=== PATIENT | female | born 1955 | race Caucasian/White ===

== ENCOUNTER → 2021-07-03 12:41 | Outpatient (CLI) | payer MEDICARE, SELFPAY ==
--- NOTE | ~2021-07-03 | US_ITS ---
EXAMINATION: US soft tissue head and neck DATE: 07/03/2021 13:06 INDICATION: Right neck mass. TECHNIQUE: Multiple grayscale and Doppler ultrasound images of the neck were obtained. COMPARISON: None FINDINGS: There is a 5.2 x 2.5 x 5.2 cm mass in the right internal jugular chain. IMPRESSION: 1. 5.2 x 2.5 x 5.2 cm mass in the right internal jugular chain, likely an enlarged jacqueline mass suspici ous for metastatic disease or lymphoma. Ultrasound-guided core needle biopsy is recommended. Neck CT with contrast is recommended. I discussed this finding and the recommendation for biopsy with the pat ient at the time of the exam. Reviewed, dictated and finalized at location B. IMPRESSION: 1. 5.2 x 2.5 x 5.2 cm mass in the right internal jugular chain, likely an enlar ged jacqueline mass suspicious for metastatic disease or lymphoma. Ultrasound-guided core needle biopsy is recommended. Neck CT with contrast is recommended. I dis cussed this finding and the recommendation for biopsy with the patient at the t rachna of the exam.
== END ==
PROVIDERS: PCP Physician Assistant; Visit Provider Physician Assistant
DX: R22.1 Localized swelling, mass and lump, neck (principal)
CPT/HCPCS: 76536

== ENCOUNTER → 2021-07-12 08:26 | Outpatient (CLI) | payer MEDICARE, SELFPAY ==
--- NOTE | ~2021-07-12 | CT_ITS ---
EXAMINATION: CT soft tissue neck chest w DATE: 07/12/2021 09:13 INDICATION: Neck mass. TECHNIQUE: Computed tomography (CT) of the neck and chest was performed with 75 mL Omnipaque 300 intr avenous contrast. Automated exposure control and iterative reconstruction technique were employed. Th e dose-length product was 794.08 mGy-cm. COMPARISON: Ultrasound 07/03/2021 FINDINGS: CT NECK: There is a mass involving the right mid and inferior internal jugular chains measuring 4.6 x 3.7 x 6.4 cm. There is mass effect on the right internal jugular vein, which remains patent. The pha rynx and larynx are normal. The thyroid is normal. There is plaque in the proximal internal carotid a rteries with less than 50% stenosis relative to normal distal artery lumen diameters. There is severe spondylosis at C5-C6 and mild spondylosis at other levels. There is mild mucosal thickening in the f rontal sinuses. There is a trace left mastoid effusion. CT CHEST: There is mild emphysema. There is mild dependent atelectasis bilaterally. There is a 5 mm n odule at minor fissure. There is a 6 mm nodule at left major fissure. There is a 4 mm nodule at left major fissure. There is a 5 mm nodule in right upper lobe. No pleural effusion. There is left atrial enlargement of the heart. There are coronary artery calcifications. No pericardial effusion. There is diffuse hepatic steatosis. There are changes of cholecystectomy. There is mild thoracic spondylosis. IMPRESSION: 1. 4.6 x 3.7 x 6.4 cm mass in the right mid and lower internal jugular lymph node chains. The differe ntial diagnosis includes jacqueline metastatic disease, lymphoma, and sarcoma. Ultrasound-guided core need le biopsy is recommended. 2. Mild emphysema. 3. Small lung nodules, likely benign. Reviewed, dictated and finalized at location A. IMPRESSION: 1. 4.6 x 3.7 x 6.4 cm mass in the right mid and lower internal jugular lymph no de chains. The differential diagnosis includes jacqueline metastatic disease, lympho ma, and sarcoma. Ultrasound-guided core needle biopsy is recommended. 2. Mild emphysema. 3. Small lung nodules, likely benign.
[2021-07-12 08:51] LABS: Estimated Glomerular Filt Rate 55
== END ==
PROVIDERS: PCP Physician Assistant; Visit Provider Physician Assistant
DX: R91.8 Other nonspecific abnormal finding of lung field (principal); J43.9 Emphysema, unspecified
CPT/HCPCS: 70491; 71260; Q9967

== ENCOUNTER 2021-10-03 13:09 | Inpatient (IN) | payer MEDICARE, SELFPAY ==
[2021-10-03] VITALS (7 sets, daily range): BP systolic 88–152; BP diastolic 58–88; PULSE 58–73; RESP 16–20; TEMP 36.3–37.1; O2SAT 88–96; BMI 24.3
--- NOTE | ~2021-10-03 | CT_ITS ---
EXAMINATION: CT abdomen pelvis w con DATE: 10/03/2021 15:44 INDICATION: abd pain TECHNIQUE: Computed tomography (CT) of the abdomen and pelvis was performed with 100 mL Omnipaque-350 intravenous contrast. Automated exposure control and iterative reconstruction technique were employe d. The dose-length product was 851.94 mGy-cm. COMPARISON: None. FINDINGS: Lower thorax: Homogenously enhancing right basilar consolidation with volume loss, likely atelectasis . Small hiatal hernia. Liver: Mild enlargement. Diffuse fatty infiltration. Biliary/Gallbladder: Gallbladder is absent. No bile duct dilation. Pancreas: No mass or duct dilation. Spleen: Normal. Adrenals:No mass. Kidneys: Simple lower pole cysts on the left. Right hypodensities, too small to characterize. No calc ification or hydronephrosis. GI tract: Antral wall edema No small or large bowel dilation. Not visualized. Diverticulosis without diverticulitis. Mesentery/Peritoneum: No ascites, mass, or free air. Retroperitoneum: No mass. Pelvis: Pelvic organs are within normal limits. Soft Tissues: Soft tissues and body wall unremarkable. Bones: No acute osseous finding. IMPRESSION: Right basal atelectasis. Mild hepatomegaly. Hepatic steatosis. Antral gastritis. Reviewed, dictated and finalized at location K. IMPRESSION: Right basal atelectasis. Mild hepatomegaly. Hepatic steatosis. Antral gastritis .
--- NOTE | ~2021-10-03 | XR_ITS ---
EXAMINATION: XR chest 1V portable DATE: 10/03/2021 14:30 INDICATION: Cough, nausea and vomiting. TECHNIQUE: frontal view of the chest was obtained. COMPARISON: Chest radiograph dated 05/06/[address] dated 07/12/2021 FINDINGS: New elevation the right hemidiaphragm with right basilar opacities most likely atelectasis. No pulmon humaira edema, pleural effusion or pneumothorax. The cardiomediastinal silhouette is normal. Surgical cli ps at the right neck which may relate to prior right thyroidectomy. IMPRESSION: 1. Opacities at the right lung base most likely atelectasis given the elevation right hemidiaphragm a lthough differential would include pneumonia. Reviewed, dictated and finalized at location A. IMPRESSION: 1. Opacities at the right lung base most likely atelectasis given the elevation right hemidiaphragm although differential would include pneumonia.
--- NOTE | ~2021-10-03 | CT_ITS ---
EXAMINATION: CT brain wo con DATE: 10/03/2021 14:32 INDICATION: Dizziness TECHNIQUE: Computed tomography (CT) of the head was performed without intravenous contrast. Sagittal and coronal reconstructions were performed. The mA was adjusted according to patient size. Iterative reconstruction technique was employed. The dose-length product was 681.00 mGy-cm. COMPARISON: None FINDINGS: No acute intracranial hemorrhage, acute infarction or abnormal extra axial fluid collection. Ventricl es are normal and symmetric. No mass/mass effect. The orbits, paranasal sinuses and mastoid air cells are normal. IMPRESSION: 1. No acute intracranial process. Reviewed, dictated and finalized at location A.
--- NOTE | 2021-10-03 13:20 | ECG_ITS ---
Measurements Intervals Perkins Rate: 65 P: 34 WA: 186 QRS: -14 QRSD: 100 T: 67 QT: 360 QTc: 377 Interpretive Statements SINUS RHYTHM BASELINE ARTIFACT LOW QRS VOLTAGE IN PRECORDIAL LEADS ANTEROSEPTAL MYOCARDIAL INFARCTION , OF INDETERMINATE AGE ABNORMAL ECG NO PREVIOUS ECG AVAILABLE FOR COMPARISON Electronically Signed On 10-03-2021 16:07:53 CDT by Dell Sharma M.D.
[2021-10-03 13:37] LABS: Basophils Percent Auto 0.2 % (0.2-1.2); Eosinophils Percent Auto 0.1 % (0-4.4); Hemoglobin 13.6 g/dL (12.0-15.0); Immature Granulocyte Absolute 0.11 K/mm3 (0.00-0.031); Immature Granulocyte Percent A 0.6 % (0-0.5); Immature Platelet Fraction Pct 12.7 % (0.9-11.2); Lymphocytes Absolute Auto 1.03 K/mm3 (0.9-3.2); Lymphocytes Percent Auto 5.7 % (18.3-44.2); Mean Corpuscular HGB Conc 36.8 g/dl (32-36); Mean Corpuscular Hemoglobin 29.4 pg (26-34); Mean Corpuscular Volume 79.9 fl (80-100); Mean Platelet Volume 11.6 fl (7.4-10.4); Monocytes Absolute Auto 0.5 K/mm3 (0.1-0.6); Monocytes Percent Auto 2.9 % (2.6-8.5); Neutrophils Absolute Auto 16.4 K/mm3 (1.3-6.7); Neutrophils Percent Auto 90.5 % (45.5-73.1); Platelet Count Result 402 k/mm3 (150-375); Red Blood Count 4.63 M/mm3 (4.2-5.4); Red Cell Distribution Width 13.8 % (11.5-14.5); White Blood Count 18.1 K/mm3 (4.5-10.0)
[2021-10-03 13:56] LABS: Alanine Aminotransferase 90 U/L (6-35); Albumin Level 5.3 g/dL (3.5-5.1); Alkaline Phosphatase 92 U/L (38-126); Anion Gap 17 mmol/L (8-16); Aspartate Amino Transferase 470 U/L (14-36); Blood Urea Nitrogen 13 mg/dL (7-17); Calcium 8.5 mg/dL (8.4-10.2); Carbon Dioxide 22 mmol/L (22-30); Chloride 67 mmol/L (98-107); Estimated CRCL calculation 49 ml/min; Estimated Glomerular Filt Rate > 60; Glucose 157 mg/dL (65-110); Potassium 3.4 mmol/L (3.4-5.0); Sodium 106 mmol/L (137-145)
[2021-10-03 15:27] LABS: SARS-CoV-2 RNA PCR Negative
--- NOTE | 2021-10-03 16:15 | ED.GENADULT ---
HPI - General Adult General Chief complaint: Dizziness Stated complaint: weakness and dizziness - low sodium Time Seen by Provider: 10/03/21 14:02 Source: RN notes reviewed History of Present Illness HPI narrative: Patient presents emergency department from home for low sodium. Patient states that for the past 2 days she has been having some dizziness as well as some nausea she did have 1 episode of emesis earlier today. The patient has a history of thyroid cancer with a thyroidectomy performed by Dr. Roberto Carlos Lanza at [facility] 6 weeks ago on 08/16/2021. She was due to have a radiation iodine ablation done today by radiation oncology and had gone to the office of Dr. Omer Magallanes today and told him of her symptoms had lab work drawn showing a sodium of 105. I did discuss with Dr. Magallanes who called on the phone and states that they were keeping the patient hypothyroid in order to come pleat her radiation iodine ablation patient denies any fevers or chills chest pain shortness of breath or any other symptom Related Data Allergies Allergy/AdvReac Type Severity Reaction Status Date / Time paroxetine Allergy Unknown Numbness Verified 10/03/21 13:11 Sulfa (Sulfonamide Allergy Unknown Throat Verified 10/03/21 13:11 Antibiotics) closes up Review of Systems Review of Systems: Gen.: Denies fevers or chills Eyes: Denies eye pain or visual change ENT: Denies congestion Respiratory: Denies shortness of breath or cough CV: Denies chest pain or palpitations GI: Denies abdominal pain reports nausea vomiting denies burning, urgency, frequency or hematuria Musculoskeletal: Denies back pain or muscle pain Neuro: De reports dizziness Skin: Denies rash Except as documented, all other systems reviewed and negative [facility] Past Medical History Medical History (Updated 10/03/21 @ 16:19 by Brandon Oconnell DO) Thyroid cancer Social History Social History Smoking status: Current every day smoker Exam Narrative: APPEARANCE: No acute distress, nontoxic, resting in bed HEENT: Normocephalic, atraumatic, OMM, EYES: PERRL, EOMI RESPIRATORY: No respiratory distress, clear to auscultation bilaterally with no rhonchi wheezing or rales CARDIOVASCULAR: RRR s murmur ABDOMINAL: Soft, nontender, nondistended MUSCULOSKELETAL: Moves all extremities. No clubbing, cyanosis or edema. NEURO: A and O ?3, following commands, speech normal, no facial droop,muscle strength 5 out of 5 bilateral upper and lower extremities SKIN:: Warm, dry. Normal Color PSYCHIATRIC: Normal affect/mood Course Course Emergency Course: Discussed with Dr. Green presentation work-up at this time request the patient received 3% normal saline at 75 mL an hour for 3 hours. Discussed with ELIN Tatum for Dr Fonseca presentation work-up agrees with admission Discussed with patient and family results of workup and diagnosis. Discussed need for admission. Patient and family understand and agree to current treatment plan Vital Signs Vital signs: Vital Signs Temperature 98.7 F 10/03/21 13:12 Pulse Rate 65 10/03/21 13:12 Respiratory Rate 16 10/03/21 13:12 Blood Pressure 152/88 H 10/03/21 13:12 Pulse Oximetry 94 10/03/21 13:12 Oxygen Delivery Room Air 10/03/21 13:12 Temperature 98.7 F 10/03/21 13:12 Pulse Rate 65 10/03/21 13:12 Respiratory Rate 16 10/03/21 13:12 Blood Pressure 152/88 H 10/03/21 13:12 Pulse Oximetry 94 10/03/21 13:12 Oxygen Delivery Room Air 10/03/21 13:12 Medical Decision Making Vital Signs Vital Signs: Vital Signs Temperature 98.7 F 10/03/21 13:12 Pulse Rate 65 10/03/21 13:12 Respiratory Rate 16 10/03/21 13:12 Blood Pressure 152/88 H 10/03/21 13:12 Pulse Oximetry 94 10/03/21 13:12 Oxygen Delivery Room Air 10/03/21 13:12 Temperature 98.7 F 10/03/21 13:12 Pulse Rate 65 10/03/21 13:12 Respiratory Rate 16 10/03/21 13:12 Blood Pressure 1
[2021-10-03 16:24] LABS: Lactic Acid Reflex 2.7 mmol/L (0.7-2.0); Lipase 277 U/L (23-300); Magnesium 1.4 mg/dL (1.6-2.3)
[2021-10-03 16:46] LABS: Appearance Urine Clear (Clear); Bilirubin Urine Negative (Negative); Blood Urine 2+ (Negative); Color Urine Yellow (Yellow); Glucose Urine UA Negative (Negative); Ketones Urine Negative (Negative); Leukocyte Esterase Ur Negative LEU/UL (Negative); Nitrate Urine Negative (Negative); Protein Urine 3+ mg/dL (Negative); Specific Grav Ur >= 1.030 (1.001-1.035); Urobilinogen Urine 0.2 mg/dL (<2.0); pH Urine 5.5 (5.0-9.0)
[2021-10-03] MEDS: SODIUM CHLORIDE 3% 225 ML 75 ML IV CONT (16:47)
[2021-10-03 16:55] LABS: Bacteria Urine Trace /hpf; Mucus Urine Rare /lpf; RBC Urine 0-2 /hpf (0-2); Squamous Epithelial Cell Urine Rare /hpf (Few); WBC Urine 0-3 /hpf
[2021-10-03 16:58] LABS: Sodium Urine Random 24 meq/L
[2021-10-03 16:59] LABS: Add Urine Microscopic? YES
--- NOTE | 2021-10-03 17:21 | PM.IMHP ---
H&P: HPI History of Present Illness Date/Time: 10/03/21 17:21 Chief Complaint: Electrolyte imbalance Narrative: This is a 66-year-old female patient who has a history having thyroid cancer. She was sent to the emergency room due to her low sodium. Over the last 2 days she is been slightly confused and had some dizziness. She has had some nausea and vomiting. The patient recently had a thyroidectomy by Dr. Roberto Carlos Lanza at [facility] 6 weeks ago on 08/16/2021. The patient was supposed to have radiation iodine ablation done today. The patient told Dr. Omre her today about her symptoms and he wanted some labs drawn. Her sodium was found to be 105. ER physician spoke with Dr. Thomas who informed the ER physician that they are wanting to keep her hypothyroid in order to do radiation iodine ablation on the patient. Urology has been consulted and 3% normal saline was hung. Patient is having difficulty answering questions at this time. The patient is being admitted to observation status on the date of service of 10/03/2021. Review of Systems Review of Systems: All systems reviewed & are unremarkable except as noted in HPI and below Constitutional: Constitutional: Reports as per HPI and Reports no additional constitutional complaints Eyes: Eyes: Reports as per HPI and Reports no additional eye complaints ENT: Reports system reviewed and no additional complaints, except as documented and Reports Normal hearing present Cardiovascular: Cardiovascular: Reports no additional cardiovascular complaints Respiratory: Respiratory: Reports no additional respiratory complaints and Reports no additional respiratory complaints Gastrointestinal: Gastrointestinal: Reports as per HPI and Reports no additional gastrointestinal complaints Musculoskeletal: Musculoskeletal: Reports no additional musculoskeletal complaints Integumentary/Breasts: Skin/Breast: Reports system reviewed and no additional complaints, except as docu and Reports as per HPI Neurologic: Reports system reviewed and no additional complaints, except as documented, Reports as per HPI and Reports Normal hearing present Psychiatric: Psychiatric: Reports no additional psychiatric complaints and Reports as per HPI Endocrine: Endocrine: Reports no additional endocrine complaints Hematologic/Lymphatic: Hematologic/Lymphatic: Reports no additional hematologic/lymphatic complaints Allergic/Immunologic: Allergic/Immunologic: Reports no additional allergic/immunologic complaints [facility] Past Medical History Medical History (Updated 10/03/21 @ 19:38 by Deepti Gilbert NP) Anxiety state, unspecified Depressive disorder, not elsewhere classified DM2 (diabetes mellitus, type 2) Thyroid cancer Surgical History Surgical History (Updated 10/03/21 @ 19:23 by Deepti Gilbert NP) H/O thyroidectomy History of tonsillectomy Hx of cholecystectomy Family History Family History Father Cerebrovascular accident Diabetes mellitus Social History Social History (Updated 10/03/21 @ 19:25 by Deepti Gilbert NP) Social History: The patient continues to smoke. She is . She is self-employed. Her son and daughter were at the bedside with her. She lives alone Code status full code Smoking packs per day: 1 Smoking cigarettes per day: 20.0 Years smoked: 48 Smoking pack-years: 48.00 Smoking status: Current every day smoker Tobacco type: e-cigarettes/vaping Additional smoking assessment comments: stopped cigarettes 2013 started 3mg nicotine vape, uses 2 cartridges a day Alcohol intake: never Substance use: never Spiritual care concerns: No Meds Home Medications and Allergies Allergies Allergy/AdvReac Type Severity Reaction Status Date / Time paroxetine Allergy Unknown Numbness Verified 10/03/21 13:11 Sulfa (Sulfonamide Allergy Unknown Throat Verified 10/03/21 13:11 Antibiotics) closes up Vit
--- NOTE | 2021-10-03 17:55 | ADMGEN ---
This patient, Viviana Ruano, was admitted to IMU Room 202-01. Patient/family oriented to hospital policies and general routines including ID bracelet, bed and alarms, visiting hours, pain management, procedures, bathroom and other care routines, personal items, smoking policy, room service/diet, and visiting hours. Information on how to activate the Rapid Response Team has been discussed. Patient/Family are encouraged to report perceived risks to care and to ask questions if they do not understand what they are told or what they should do.
[2021-10-03 18:12] LABS: Glucose Point of Care 139 mg/dl (65-105)
[2021-10-03 18:13] LABS: Creatine Kinase 15941 U/L (30-135)
[2021-10-03] MEDS: MAGNESIUM SULF 2 GM/WATER 50ML 2 GM/50 ML BAG IVPB (18:17)
--- NOTE | 2021-10-03 18:23 | PM.CNNEP ---
Assessment and Plan Additional Plan 1. Viviana has hyponatremia. This is severe. She does have some symptoms with the dizziness and difficulty with recall. She does not drink alcohol to excess. CT brain was unremarkable. Chest x-ray shows some by basilar atelectasis, not enough to cause sodium to be low. Abdominal CT shows mild hepatomegaly with hepatic steatosis and antral gastritis. Will check a TSH, cortisol, SPEP, From the history it sounds like she has been drinking a moderate amount of fluid but not taking any salt in and also not eating much the last couple or 3 days because of the nausea. She has hypothyroidism because she has been holding her thyroid supplement and so this decreases the body's ability to get rid of free water. In addition the nausea can also stimulate ADH. So this is a combination of inappropriate ADH and water drinking out of balance with the salt intake. At this point since she is symptomatic we will give her a small amount of 3% saline to try to bring the sodium level up by about 3. In the meantime we will start a fluid restriction of 1000cc per day. Will check a sodium level right after the 3% saline infusion is over. Long discussion with the patient, her son and [id number]. I answered questions. 2. The patient has elevated liver enzymes. The CT showed hepatic steatosis and hepatomegaly. 3. The patient has thyroid carcinoma. She is going to get MEDEROS. 4. The patient has hypertension. Her blood pressure is doing pretty well. 5. She has hyperlipidemia. She is on meds for this. History of Present Illness Reason for Consult Consult date: 10/03/21 Chief Complaint Chief complaint: weakness and dizziness - low sodium History of Present Illness Narrative: Viviana is a very pleasant 66-year-old lady who has multiple medical problems including thyroid cancer, hypertension, hyperlipidemia, depression, and anxiety. 6 weeks ago the patient had a total thyroidectomy. This was because of thyroid cancer. She is planning to do radioactive iodine to ablate the remainder of the thyroid cancer. For this reason the radiation oncologist told her to stop her thyroid supplementation And not to use any iodized salt so that the cancer would absorb the radioactive thyroid. Over the past few days the patient has had nausea with vomiting. She really has not had much of an appetite for a few days even before that as well. She has been drinking about 2 quarts of water per day. Over the last couple of days the patient has become dizzy as well as ill with the nausea. she went to see her primary care physician who aurelia some blood work and her sodium was only 105 so she was sent to the ER. In the ER this was repeated and the sodium level was 106. So renal consultation was requested. The patient does not take any antidepressants, diuretics, narcotics, or PPIs. She has a history of thyroid cancer but no history of any other cancer. She does not have any [employer] or pulmonary issues. In the ER she also had liver enzymes checked and these were elevated, mostly AST. She tells me that she is not been smoking and she has not been drinking. Review of Systems Constitutional: Constitutional: Reports no additional constitutional complaints Eyes: Eyes: Reports no additional eye complaints ENT: Reports system reviewed and no additional complaints, except as documented Cardiovascular: Cardiovascular: Reports no additional cardiovascular complaints Respiratory: Respiratory: Reports no additional respiratory complaints Gastrointestinal: Gastrointestinal: Reports no additional gastrointestinal complaints Genitourinary: Genitourinary: Reports no additional female genitourinary complaints Musculoskeletal: Musculoskeletal: Reports no additional musculoskeletal complaints Integumentary/Breasts: Skin/Breast: Reports system reviewed and no additional complaints, except as docu Neurologic:
[2021-10-03 18:45] LABS: Free T4 Free Thyroxine Reflex < 0.07 ng/dL (0.78-2.19)
--- NOTE | 2021-10-03 19:04 | PM.EVENT ---
Event Note Event Note Event Note: I was just called by the ER. We checked a CPK because her liver enzymes were elevated. It turns out that the CPK is greater than 15,000 so rhabdomyolysis is present. After the 3% is infused I will give her a bicarbonate drip using an isotonic solution. Urine sodium is low at only 24 so she might also be dehydrated in which case IV fluids might help bring the sodium up as well.
[2021-10-03 19:12] LABS: Reflex Lactic Acid Yes or No Add Lactic
[2021-10-03 20:09] LABS: Anion Gap 11 mmol/L (8-16); Blood Urea Nitrogen 12 mg/dL (7-17); Calcium 8.4 mg/dL (8.4-10.2); Carbon Dioxide 26 mmol/L (22-30); Chloride 69 mmol/L (98-107); Estimated CRCL calculation 49 ml/min; Estimated Glomerular Filt Rate > 60; Glucose 157 mg/dL (65-110); Lactic Acid 1.9 mmol/L (0.7-2.0); Potassium 3.2 mmol/L (3.4-5.0); Sodium 106 mmol/L (137-145)
[2021-10-03 20:33] LABS: Glucose Point of Care 192 mg/dl (65-105)
[2021-10-03] MEDS: SODIUM BICARBONATE 8.4% 150 MEQ in WATER, STERILE FOR INJECTION 950 ML 50 MEQ IV CONT (20:46)
[2021-10-03] MEDS: POTASSIUM CHLORIDE 20 MEQ TABLET 40 MEQ PO (20:49)
[2021-10-03 21:40] LABS: Anion Gap 13 mmol/L (8-16); Blood Urea Nitrogen 12 mg/dL (7-17); Calcium 8.2 mg/dL (8.4-10.2); Carbon Dioxide 26 mmol/L (22-30); Chloride 70 mmol/L (98-107); Estimated CRCL calculation 44 ml/min; Estimated Glomerular Filt Rate 55; Glucose 146 mg/dL (65-110); Potassium 3.3 mmol/L (3.4-5.0); Sodium 109 mmol/L (137-145)
[2021-10-03 22:13] LABS: Free T4 Free Thyroxine Reflex < 0.07 ng/dL (0.78-2.19)
[2021-10-03] MEDS: POTASSIUM CHLORIDE INJ 40 MEQ in SODIUM CHLORIDE 0.9% IV 500 ML 130 MEQ IVPB (22:40)
[2021-10-04] VITALS (13 sets, daily range): BP systolic 92–115; BP diastolic 51–57; PULSE 60–79; RESP 12–22; TEMP 36.2–36.9; O2SAT 93–98
[2021-10-04 01:10] LABS: Creatinine Urine 68.9 mg/dL; Total Protein Urine Random 14 mg/dL
[2021-10-04 01:57] LABS: Basophils Percent Auto 0.2 % (0.2-1.2); Eosinophils Percent Auto 0.2 % (0-4.4); Hematocrit 35.7 % (37.0-47.0); Hemoglobin 12.9 g/dL (12.0-15.0); Immature Granulocyte Absolute 0.09 K/mm3 (0.00-0.031); Immature Granulocyte Percent A 0.7 % (0-0.5); Lymphocytes Absolute Auto 1.24 K/mm3 (0.9-3.2); Lymphocytes Percent Auto 9.1 % (18.3-44.2); Mean Corpuscular HGB Conc 36.1 g/dl (32-36); Mean Corpuscular Hemoglobin 29.5 pg (26-34); Mean Corpuscular Volume 81.5 fl (80-100); Mean Platelet Volume 11.7 fl (7.4-10.4); Monocytes Absolute Auto 0.6 K/mm3 (0.1-0.6); Monocytes Percent Auto 4.5 % (2.6-8.5); Neutrophils Absolute Auto 11.7 K/mm3 (1.3-6.7); Neutrophils Percent Auto 85.3 % (45.5-73.1); Platelet Count Result 357 k/mm3 (150-375); Red Blood Count 4.38 M/mm3 (4.2-5.4); Red Cell Distribution Width 13.9 % (11.5-14.5); White Blood Count 13.7 K/mm3 (4.5-10.0)
[2021-10-04 02:12] LABS: Alanine Aminotransferase 84 U/L (6-35); Albumin Level 4.4 g/dL (3.5-5.1); Alkaline Phosphatase 83 U/L (38-126); Anion Gap 10 mmol/L (8-16); Aspartate Amino Transferase 384 U/L (14-36); Bilirubin,Total 0.8 mg/dL (0.2-1.3); Blood Urea Nitrogen 11 mg/dL (7-17); Carbon Dioxide 28 mmol/L (22-30); Chloride 70 mmol/L (98-107); Estimated CRCL calculation 54 ml/min; Estimated Glomerular Filt Rate > 60; Glucose 129 mg/dL (65-110); Potassium 4.2 mmol/L (3.4-5.0); Sodium 108 mmol/L (137-145)
[2021-10-04 02:33] LABS: Creatine Kinase 10383 U/L (30-135)
[2021-10-04 07:51] LABS: Glucose Point of Care 157 mg/dl (65-105)
[2021-10-04 08:28] LABS: Albumin Level 4.6 g/dL (3.5-5.1); Anion Gap 11 mmol/L (8-16); Blood Urea Nitrogen 10 mg/dL (7-17); Calcium 7.9 mg/dL (8.4-10.2); Carbon Dioxide 29 mmol/L (22-30); Chloride 74 mmol/L (98-107); Estimated CRCL calculation 54 ml/min; Estimated Glomerular Filt Rate > 60; Glucose 127 mg/dL (65-110); Phosphorus 2.2 mg/dL (2.5-4.5); Potassium 3.9 mmol/L (3.4-5.0); Sodium 114 mmol/L (137-145)
[2021-10-04] MEDS: ENOXAPARIN 40 MG/0.4 ML SYRINGE SUB-Q (08:46)
[2021-10-04] MEDS: FAMOTIDINE 20 MG TABLET PO ×2 (08:46→20:31)
[2021-10-04] MEDS: SODIUM CHLORIDE 0.9% IV 1,000 ML 75 ML IV CONT (08:47)
--- NOTE | 2021-10-04 09:30 | PM.IMPN ---
Progress Note: A&P Assessment and Plan (1) Acute hyponatremia: Code(s): E87.1 - Hypo-osmolality and hyponatremia Status: Acute Assessment and Plan: Patient presents to a physician for plans for radiation iodine ablation but had complaints dizziness and confusion. Routine lab work showed hyponatremia and she was directed to the ED for evaluation and admission. Patient's sodium was 105 here. TSH is elevated the Radiation oncology's wishes to keep the TSH elevated at this time. Renal cortisol was elevated so this will be repeated. CT brain negative. CXR showing probable atelectasis (confirmed by CT of the abdomen). Patient was on lisinopril/HCTZ which contributed to her hyponatremia. Urine sodium was 24 with FENa 0.3%. Nephrology consulted. Patient was given 3% normal saline and was to continue on IV fluids. Na up to 114 today. Nephrology made aware. Continue to follow. Continue fluid restriction. Appreciate Nephrology input. Mild hypoxia noted felt related to atelectasis. Add IS. Continue serial Na levels (2) Rhabdomyolysis: Code(s): M62.82 - Rhabdomyolysis Status: Acute Assessment and Plan: TCK 54588 on admission. Not on statin therapy. COVID negative. Etiology unclear. With IV fluids, TCK trending down. Follow. Start PT/OT. (3) Elevated LFTs: Code(s): R79.89 - Other specified abnormal findings of blood chemistry Status: Acute Assessment and Plan: AST/ALT elevated on admission. COVID negative. Suspect most likely related to the rhabdomyolysis. Check hepatitis panel (4) Thyroid cancer: Code(s): C73 - Malignant neoplasm of thyroid gland Status: Acute Assessment and Plan: Patient is s/p thyroidectomy on 08/16/21. There is now plans for BABITA by oncology. Oncology wishes to keep the patient hypothyroid for now. Further treatment per oncology (5) DM2 (diabetes mellitus, type 2): Code(s): E11.9 - Type 2 diabetes mellitus without complications Status: Acute Assessment and Plan: The patient's blood glucose was reviewed on 10/04 Glucose remains well controlled. Continue AccuCheks covering with sliding scale. Hypoglycemia protocol available as needed. Continue to follow. Change to diabetic diet (6) Hypertension: Code(s): I10 - Essential (primary) hypertension Status: Acute Assessment and Plan: Patient's blood pressure was reviewed on 10/04 Blood pressure remains well controlled; even soft at times. Continue to hold lisinopril/HCTZ. Will continue to monitor. Hydralazine available prn. (7) Gastritis: Code(s): K29.70 - Gastritis, unspecified, without bleeding Status: Acute Assessment and Plan: CT of the abdomen and pelvis performed due to abdominal pain. Patient noted to have hepatic steatosis with hepatomegaly as well as antral gastritis. Will add Pepcid. Continue to monitor. Plan DVT prophylaxis: Lovenox Code status: DNR Diet: Regular with fluid restriction. Change to diabetic diet. Subjective Date/time seen: 10/04/21 09:30 Interval history: 66yo female with hx of thyroid cancer who was sent to the ED for hyponatremia and had symptoms of confusion and dizziness. Patient slept poorly last night. No chest pain. She feels out of sorts. She still feels mildly confused. No nausea. Oxygen level dropped overnight requiring 1L O2 nasal cannula. Exam Narrative: AF 98.4 115/57 67 12 95% 1L Gen - NARD Neck - thyroidectomy incision has healed completely Chest - few basilar rhonchi o/w clear. nml RR CV - RRR S1/S2. Tele showing PVCs Abd - Soft, NT/ND, Positive BS Ext - No pedal edema Neuro - Alert and orientedx4. Psych - Nml mood and affect Skin - Warm and dry Objective Data Vital Signs Vital Signs: Vital Signs - 24 hr 10/03/21 13:12 10/03/21 15:55 10/03/21 16:54 Temperature 98.7 F Pulse Rate 65 72 70 Respiratory Rate 16 19 17 Blood Pressure 152/88 H
[2021-10-04 11:09] LABS: Add Urine Microscopic? YES; Appearance Urine Clear (Clear); Bilirubin Urine Negative (Negative); Blood Urine 1+ (Negative); Color Urine Yellow (Yellow); Glucose Urine UA Negative (Negative); Ketones Urine Negative (Negative); Leukocyte Esterase Ur 2+ LEU/UL (NEGATIVE); Nitrate Urine Negative (Negative); Protein Urine Negative (Negative); Urobilinogen Urine 0.2 mg/dL (<2.0)
[2021-10-04 11:19] LABS: Mucus Urine Rare /lpf; RBC Urine 0-2 /hpf (0-2); Squamous Epithelial Cell Urine Rare /hpf (Few)
[2021-10-04 12:09] LABS: Glucose Point of Care 173 mg/dl (65-105)
[2021-10-04 12:52] LABS: Sodium 115 mmol/L (137-145)
--- NOTE | 2021-10-04 15:15 | PM.PNNEP ---
Progress Note: A&P Additional Plan 1. Viviana has hyponatremia. This is severe. Her level was 106 yesterday. She has hypothyroidism. Her TSH is high because she is purposefully holding her Synthroid so she can get MEDEROS She was also on hydrochlorothiazide. This has been held. She was also drinking plenty of fluid but not eating anything. So this is a case where to combination of decreased free water clearance plus extra water intake. Her sodium level has come up to 114 this morning and 115 this afternoon. This is a delta of 9. This is barely to high. Will give D5W and DDAVP. Then repeat the sodium level. Will continue fluid restriction. 2. The patient has elevated liver enzymes. It turns out that these are probably coming from the muscle as should her CPK is very high. She was given bicarb drip last night. Her bicarb level is 29. Her urine pH is 7. So she is on saline now as the urine is alkalinized. This will help clear the Myoglobin. 3. The patient has thyroid carcinoma. She is going to get MEDEROS. 4. The patient has hypertension. Her blood pressure is doing pretty well. 5. She has hyperlipidemia. She told me that she was on a statin as an outpatient. She is not on one now. Subjective Date/time seen: 10/04/21 15:16 Interval history: Viviana is feeling better today. Much more animated. No more dizziness or nausea or headaches. No chest pain or shortness of breath. Review of Systems Cardiovascular: Cardiovascular: Reports no additional cardiovascular complaints Respiratory: Respiratory: Reports no additional respiratory complaints Gastrointestinal: Gastrointestinal: Reports no additional gastrointestinal complaints Genitourinary: Genitourinary: Reports no additional female genitourinary complaints Exam Narrative: WDWN in NAD skin no rash head ncat lungs clear cor reg no rub abd BS+ nontender and soft ext no edema. Objective Data Vital Signs Vital Signs: Vital Signs - 24 hr 10/03/21 15:55 10/03/21 16:54 10/03/21 17:35 Temperature 36.3 C L Pulse Rate 72 70 73 Respiratory Rate 19 17 20 Blood Pressure 140/64 136/88 110/72 Pulse Oximetry 93 96 93 Oxygen Delivery Oxygen Flow Rate 10/03/21 18:09 10/03/21 20:00 10/03/21 20:00 Temperature 36.7 C Pulse Rate 65 Respiratory Rate 18 Blood Pressure 114/58 L 114/58 L Pulse Oximetry 88 L Oxygen Delivery Room Air Oxygen Flow Rate 10/03/21 20:00 10/03/21 20:00 10/03/21 20:00 Temperature Pulse Rate 64 Respiratory Rate Blood Pressure 91/76 L 88/61 L Pulse Oximetry Oxygen Delivery Oxygen Flow Rate 10/03/21 20:00 10/03/21 22:00 10/03/21 23:54 Temperature 36.7 C Pulse Rate 65 58 L 69 Respiratory Rate 18 18 Blood Pressure 139/76 Pulse Oximetry 93 Oxygen Delivery Room Air Oxygen Flow Rate 10/04/21 00:00 10/04/21 00:00 10/04/21 04:00 Temperature 36.8 C Pulse Rate 63 69 62 Respiratory Rate 18 22 H Blood Pressure 112/51 L Pulse Oximetry 93 97 Oxygen Delivery Nasal Cannula Oxygen Flow Rate 2 10/04/21 02:00 10/04/21 04:00 10/04/21 04:00 Temperature Pulse Rate 63 64 62 Respiratory Rate 22 H Blood Pressure Pulse Oximetry 97 Oxygen Delivery Nasal Cannula Oxygen Flow Rate 1 10/04/21 06:00 10/04/21 08:00 10/04/21 08:00 Temperature 36.9 C Pulse Rate 65 67 64 Respiratory Rate 12 Blood Pressure 115/57 L Pulse Oximetry 95 Oxygen Delivery Oxygen Flow Rate 10/04/21 08:00 10/04/21 10:00 10/04/21 11:35 Temperature Pulse Rate 79 Respiratory Rate Blood Pressure Pulse Oximetry 95 Oxygen Delivery Nasal Cannula Nasal Cannula Oxygen Flow Rate 1 1 10/04/21 12:00 10/04/21 12:00 10/04/21 12:00 Temperature 36.7 C Pulse Rate 64 64 Respiratory Rate 18 Blood Pressure 92/57 L Pulse Oximetry 96 95 Oxygen Delivery Nasal Cannula Oxygen Flow Rate 1 10/04/21 14:00 Te
[2021-10-04] MEDS: DESMOPRESSIN ACETATE 4 MCG/ML AMP 2 MCG IV PUSH (16:08)
[2021-10-04] MEDS: DEXTROSE 5% 1,000 ML 1,000 ML 210 ML IV CONT (16:13)
[2021-10-04 16:33] LABS: Glucose Point of Care 192 mg/dl (65-105)
[2021-10-04 17:41] LABS: Sodium 116 mmol/L (137-145)
[2021-10-04 18:51] LABS: Sodium 115 mmol/L (137-145)
[2021-10-04] MEDS: MELATONIN 3 MG TABLET PO (20:31)
[2021-10-04 20:40] LABS: Glucose Point of Care 220 mg/dl (65-105)
[2021-10-04 21:41] LABS: Sodium 117 mmol/L (137-145)
[2021-10-04] MEDS: DEXTROSE 5% IN WATER 500 ML 210 ML IVPB (23:19)
[2021-10-05] VITALS (13 sets, daily range): BP systolic 102–134; BP diastolic 54–70; PULSE 51–70; RESP 16–20; TEMP 36.2–36.5; O2SAT 93–99
--- NOTE | 2021-10-05 01:30 | PC.NURSE ---
Addendum entered by Laurence Loving RN 10/05/21 03:48: Pt called this RN to room because of a man looking through the window and a bus parked outside of the window. Reoriented pt that she was on the second floor and that she was safe. Other neuro assessment WNL except ongoing dizziness. Original Note: Matt avina
[2021-10-05 02:25] LABS: Anion Gap 7 mmol/L (8-16); Blood Urea Nitrogen 10 mg/dL (7-17); Calcium 7.6 mg/dL (8.4-10.2); Carbon Dioxide 28 mmol/L (22-30); Chloride 77 mmol/L (98-107); Estimated CRCL calculation 54 ml/min; Estimated Glomerular Filt Rate > 60; Glucose 133 mg/dL (65-110); Magnesium 1.9 mg/dL (1.6-2.3); Potassium 3.2 mmol/L (3.4-5.0); Sodium 112 mmol/L (137-145)
[2021-10-05] MEDS: SODIUM CHLORIDE 0.9% IV 1,000 ML 75 ML IV CONT (02:33)
[2021-10-05] MEDS: POTASSIUM CHLORIDE 20 MEQ PACKET (FOR LIQUID) 40 MEQ PO (03:31)
[2021-10-05] MEDS: MAGNESIUM SULF 2 GM/WATER 50ML 2 GM/50 ML BAG IVPB (03:32)
[2021-10-05 04:46] LABS: Basophils Absolute Auto 0.1 K/mm3 (0.0-0.1); Basophils Percent Auto 0.8 % (0.2-1.2); Eosinophils Absolute Auto 0.2 K/mm3 (0-0.3); Eosinophils Percent Auto 1.5 % (0-4.4); Hemoglobin 11.7 g/dL (12.0-15.0); Immature Granulocyte Absolute 0.05 K/mm3 (0.00-0.031); Immature Granulocyte Percent A 0.5 % (0-0.5); Lymphocytes Percent Auto 22.2 % (18.3-44.2); Mean Corpuscular HGB Conc 35.5 g/dl (32-36); Mean Corpuscular Volume 84.6 fl (80-100); Mean Platelet Volume 11.9 fl (7.4-10.4); Monocytes Absolute Auto 0.6 K/mm3 (0.1-0.6); Monocytes Percent Auto 6.1 % (2.6-8.5); Neutrophils Absolute Auto 6.8 K/mm3 (1.3-6.7); Neutrophils Percent Auto 68.9 % (45.5-73.1); Platelet Count Result 298 k/mm3 (150-375); Red Cell Distribution Width 14.1 % (11.5-14.5); White Blood Count 9.9 K/mm3 (4.5-10.0)
[2021-10-05 05:08] LABS: Alanine Aminotransferase 67 U/L (6-35); Albumin Level 3.9 g/dL (3.5-5.1); Alkaline Phosphatase 70 U/L (38-126); Anion Gap 9 mmol/L (8-16); Aspartate Amino Transferase 229 U/L (14-36); Bilirubin,Total 0.5 mg/dL (0.2-1.3); Blood Urea Nitrogen 9 mg/dL (7-17); Calcium 7.6 mg/dL (8.4-10.2); Carbon Dioxide 25 mmol/L (22-30); Chloride 78 mmol/L (98-107); Estimated CRCL calculation 61 ml/min; Estimated Glomerular Filt Rate > 60; Glucose 128 mg/dL (65-110); Phosphorus 1.7 mg/dL (2.5-4.5); Potassium 3.7 mmol/L (3.4-5.0); Sodium 112 mmol/L (137-145)
[2021-10-05 05:32] LABS: Creatine Kinase 4321 U/L (30-135)
[2021-10-05 05:35] LABS: Hepatitis B Surface Antigen Negative (Negative)
[2021-10-05 05:42] LABS: HAV RESULT Negative (Negative); Hepatitis B Core IgM Result Negative (Negative)
[2021-10-05 05:53] LABS: Hepatitis C Virus Antibody Negative (Negative)
[2021-10-05 07:00] LABS: Phosphorus 1.7 mg/dL (2.5-4.5); Potassium 3.7 mmol/L (3.4-5.0); Sodium 112 mmol/L (137-145)
[2021-10-05 07:01] LABS: Albumin Level 3.9 g/dL (3.5-5.1); Anion Gap 9 mmol/L (8-16); Blood Urea Nitrogen 9 mg/dL (7-17); Calcium 7.6 mg/dL (8.4-10.2); Carbon Dioxide 25 mmol/L (22-30); Chloride 78 mmol/L (98-107); Estimated CRCL calculation 69 ml/min; Estimated Glomerular Filt Rate > 60; Glucose 128 mg/dL (65-110)
[2021-10-05 08:18] LABS: Glucose Point of Care 148 mg/dl (65-105)
[2021-10-05] MEDS: ENOXAPARIN 40 MG/0.4 ML SYRINGE SUB-Q (08:51)
[2021-10-05] MEDS: FAMOTIDINE 20 MG TABLET PO ×2 (08:51→20:04)
--- NOTE | 2021-10-05 11:56 | PM.PNNEP ---
Progress Note: A&P Additional Plan 1. Viviana has hyponatremia. This is severe. Her level was 106 yesterday. She has hypothyroidism. Her TSH is high because she is purposefully holding her Synthroid so she can get MEDEROS She was also on hydrochlorothiazide. This has been held. She was also drinking plenty of fluid but not eating anything. So this is a case where to combination of decreased free water clearance plus extra water intake. 8 1p Na 106 8/4 7a 114 8/ 1200 115. this is overcorrection so given d5w and ddavp 1700 116 more d5w 2130 117 given more d5w 10/05 2a 112 Currently we use 112 as the new baseline for today. DDAVP may still be on board. Will check another sodium at 1:00 p.m.. 2. The patient has elevated liver enzymes. It turns out that these are probably coming from the muscle as should her CPK is very high. Getting normal saline now keep flushing the muscle enzymes. CK down to around 4000 now. Check again in the morning. Check another urine pH in the morning as well. 3. The patient has thyroid carcinoma. She is going to get MEDEROS. 4. The patient has hypertension. Her blood pressure is doing pretty well. 5. She has hyperlipidemia. She told me that she was on a statin as an outpatient. She is not on one now. Subjective Date/time seen: 10/05/21 11:56 Interval history: Viviana is feeling better today. She is upset that she is not much better today. We discussed how sick she was in the ER. She agrees she is much better. No more dizziness or nausea or headaches. No chest pain or shortness of breath. Exam Narrative: WDWN in NAD skin no rash or subQ nodules head ncat lungs clear bilaterally cor reg no rub abd BS+ nontender and soft ext no edema. Objective Data Vital Signs Vital Signs: Vital Signs - 24 hr 10/04/21 12:00 10/04/21 12:00 10/04/21 12:00 Temperature 36.7 C Pulse Rate 64 64 Respiratory Rate 18 Blood Pressure 92/57 L Pulse Oximetry 96 95 Oxygen Delivery Nasal Cannula Oxygen Flow Rate 1 10/04/21 14:00 10/04/21 16:00 10/04/21 16:00 Temperature 36.8 C Pulse Rate 66 62 Respiratory Rate 16 Blood Pressure 108/54 L Pulse Oximetry 95 95 Oxygen Delivery Nasal Cannula Oxygen Flow Rate 1 10/04/21 16:00 10/04/21 18:00 10/04/21 19:42 Temperature 36.2 C L Pulse Rate 65 63 66 Respiratory Rate 20 Blood Pressure 106/51 L Pulse Oximetry 98 Oxygen Delivery Oxygen Flow Rate 10/04/21 20:00 10/04/21 22:00 10/04/21 20:00 Temperature Pulse Rate 65 60 60 Respiratory Rate 20 Blood Pressure Pulse Oximetry 98 Oxygen Delivery Room Air Oxygen Flow Rate 10/05/21 00:00 10/05/21 00:00 10/05/21 00:00 Temperature 36.2 C L Pulse Rate 56 L 60 60 Respiratory Rate 20 20 Blood Pressure 102/54 L Pulse Oximetry 98 99 Oxygen Delivery Room Air Oxygen Flow Rate 10/05/21 02:00 10/05/21 04:00 10/05/21 04:00 Temperature 36.4 C Pulse Rate 60 57 L 56 L Respiratory Rate 16 Blood Pressure 109/58 L Pulse Oximetry 94 Oxygen Delivery Oxygen Flow Rate 10/05/21 04:00 10/05/21 06:00 10/05/21 08:00 Temperature 36.2 C L Pulse Rate 57 L 53 L 55 L Respiratory Rate 16 20 Blood Pressure 127/69 Pulse Oximetry 94 98 Oxygen Delivery Room Air Oxygen Flow Rate Intake/Output Intake/Output: Intake & Output 10/02/21 10/03/21 10/04/21 10/05/21 23:59 23:59 23:59 23:59 Intake Total 275 3050 710 Output Total 450 3200 300 Balance -175 -150 410 Meds/Results Medications: Active Medications Generic Name Dose Route Start Last Admin Trade Name Freq PRN Reason Stop Dose Admin Dextrose 12.5 gm 10/03/21 19:29 Dextrose 50% 25 Gm/50 Ml Syringe IV PUSH PRN PRN Hypoglycemia Protocol Enoxaparin Sodium 40 mg 10/04/21 09:00 10/05/21 08:51 Enoxaparin 40 Mg/0.4 Ml Syringe SUB-Q 40 mg DAILY INA Administration Famot
[2021-10-05 12:03] LABS: Glucose Point of Care 144 mg/dl (65-105)
[2021-10-05 13:22] LABS: Sodium 115 mmol/L (137-145)
--- NOTE | 2021-10-05 14:55 | PM.IMPN ---
Progress Note: A&P Assessment and Plan (1) Acute hyponatremia: Code(s): E87.1 - Hypo-osmolality and hyponatremia Status: Acute Assessment and Plan: Patient presents to a physician for plans for radiation iodine ablation but had complaints dizziness and confusion. Routine lab work showed hyponatremia and she was directed to the ED for evaluation and admission. Patient's sodium was 105 here. TSH is elevated the Radiation oncology's wishes to keep the TSH elevated at this time. Renal cortisol was elevated so this will be repeated. CT brain negative. CXR showing probable atelectasis (confirmed by CT of the abdomen). Patient was on lisinopril/HCTZ which contributed to her hyponatremia. Urine sodium was 24 with FENa 0.3%. Nephrology consulted. Patient was given 3% normal saline and was to continue on IV fluids. Na up to 114 today. Nephrology made aware. Nephrology following watch sodium levels pt is on NS at 75cc per hour (2) Rhabdomyolysis: Code(s): M62.82 - Rhabdomyolysis Status: Acute Assessment and Plan: [place]CK 13664 on admission. Not on statin therapy. COVID negative. watch CK levels continue iv fluids (3) Elevated LFTs: Code(s): R79.89 - Other specified abnormal findings of blood chemistry Status: Acute Assessment and Plan: AST/ALT elevated on admission. COVID negative. Suspect most likely related to the rhabdomyolysis. (4) Thyroid cancer: Code(s): C73 - Malignant neoplasm of thyroid gland Status: Acute Assessment and Plan: Patient is s/p thyroidectomy on 08/16/21. There is now plans for BABITA by oncology. Further treatment per oncology (5) DM2 (diabetes mellitus, type 2): Code(s): E11.9 - Type 2 diabetes mellitus without complications Status: Acute Assessment and Plan: Continue AccuCheks covering with sliding scale. Hypoglycemia protocol available as needed. Continue to follow. Change to diabetic diet (6) Hypertension: Code(s): I10 - Essential (primary) hypertension Status: Acute Assessment and Plan: BP is 122/70. can restart BP meds later. Will continue to monitor. Hydralazine available prn. (7) Gastritis: Code(s): K29.70 - Gastritis, unspecified, without bleeding Status: Acute Assessment and Plan: CT of the abdomen and pelvis performed due to abdominal pain. Patient noted to have hepatic steatosis with hepatomegaly as well as antral gastritis. Will add Pepcid. Continue to monitor. Subjective Date/time seen: 2021 66yo female with hx of thyroid cancer who was sent to the ED for hyponatremia and had symptoms of confusion and dizziness. Pt feels better today sodium is 115 still low. Review of Systems Review of Systems: no dizziness or confusion today Exam Narrative: Vital Signs Temp Pulse Resp BP Pulse Ox O2 Del Method O2 Flow Rate 10/05/21 12:00 36.5 C 58 L 16 122/70 96 10/05/21 08:00 36.2 C L 55 L 20 127/69 98 10/05/21 06:00 53 L 10/05/21 04:00 57 L 16 94 Room Air 10/05/21 04:00 56 L 10/05/21 04:00 36.4 C 57 L 16 109/58 L 94 10/05/21 02:00 60
[2021-10-05 16:34] LABS: Sodium 116 mmol/L (137-145)
[2021-10-05 16:38] LABS: Glucose Point of Care 154 mg/dl (65-105)
[2021-10-05] MEDS: DICYCLOMINE HCL 10 MG CAPSULE PO (17:25)
[2021-10-05] MEDS: MELATONIN 3 MG TABLET PO (20:04)
[2021-10-05 20:08] LABS: Glucose Point of Care 176 mg/dl (65-105)
[2021-10-05 20:13] LABS: Sodium 118 mmol/L (137-145)
[2021-10-05] MEDS: DEXTROSE 5% 1,000 ML 1,000 ML 100 ML IV CONT (20:49)
[2021-10-06] VITALS (15 sets, daily range): BP systolic 113–157; BP diastolic 66–98; PULSE 55–73; RESP 12–20; TEMP 36.2–37.1; O2SAT 96–100
[2021-10-06 00:33] LABS: Sodium 121 mmol/L (137-145)
[2021-10-06] MEDS: DESMOPRESSIN ACETATE 4 MCG/ML AMP 2 MCG IV PUSH (01:15)
[2021-10-06] MEDS: DEXTROSE 5% 1,000 ML 1,000 ML 210 ML IV CONT (01:17)
[2021-10-06 04:14] LABS: Sodium 117 mmol/L (137-145)
[2021-10-06 06:41] LABS: Appearance Urine Slightly Cloudy (Clear); Bilirubin Urine Negative (Negative); Blood Urine 1+ (Negative); Color Urine Yellow (Yellow); Glucose Urine UA Negative (Negative); Ketones Urine Negative (Negative); Leukocyte Esterase Ur 3+ LEU/UL (NEGATIVE); Nitrate Urine Positive (Negative); Protein Urine Negative (Negative)
[2021-10-06 06:48] LABS: Bacteria Urine Trace /hpf; Mucus Urine Rare /lpf; Squamous Epithelial Cell Urine Rare /hpf (Few); WBC Urine 31-50 /hpf (0-3)
[2021-10-06 07:05] LABS: Add Urine Microscopic? YES
[2021-10-06 07:57] LABS: Glucose Point of Care 142 mg/dl (65-105)
[2021-10-06 08:48] LABS: Anion Gap 6 mmol/L (8-16); Blood Urea Nitrogen 9 mg/dL (7-17); Calcium 7.3 mg/dL (8.4-10.2); Carbon Dioxide 28 mmol/L (22-30); Chloride 83 mmol/L (98-107); Creatine Kinase 1397 U/L (30-135); Estimated CRCL calculation 61 ml/min; Estimated Glomerular Filt Rate > 60; Glucose 122 mg/dL (65-110); Sodium 117 mmol/L (137-145)
[2021-10-06] MEDS: ENOXAPARIN 40 MG/0.4 ML SYRINGE SUB-Q (09:29)
[2021-10-06] MEDS: FAMOTIDINE 20 MG TABLET PO ×2 (09:30→20:51)
--- NOTE | 2021-10-06 10:46 | PM.PNNEP ---
Progress Note: A&P Additional Plan 1.? Viviana has hyponatremia.? This is severe. ? Her level was 106 on admission. ? She has hypothyroidism.? Her TSH is high because she is purposefully holding her Synthroid so she can get MEDEROS ? She was also on hydrochlorothiazide.? This has been held. ? She was also drinking plenty of fluid but not eating anything. ? So this is a case where to combination of decreased? free water clearance plus extra water intake. 10/03? 1p? Na 106 8/? 7a? 114 8? 1200?? 115.? this is overcorrection so given d5w and ddavp 1700?? 116? more d5w 2130 117? given more d5w 10/05 2a 112? 4a 112 7p 118 MN 121 given desmopressin and d5w. 10/06 5a 117 pt overcorrected twice. I will give scheduled desmopressin and use 3% saline to correct sodium to about 130. 3.? The patient has thyroid carcinoma.? She is going to get MEDEROS. holding off on synthroid. 4.? The patient has hypertension.? Her blood pressure is doing pretty well. 5.? She has? hyperlipidemia.? ? She told me that she was on a statin as an outpatient.? She is not on one now. discussed with nursing several times yesterday as sodium levels came back. at least 25m in spent on calls besides clinical activity. Subjective Date/time seen: 10/06/21 10:46 Interval history: Patient feels okay. She feels better now than she has in a while. She has no chest pain or shortness of breath. Review of Systems Cardiovascular: Cardiovascular: Reports no additional cardiovascular complaints Respiratory: Respiratory: Reports no additional respiratory complaints Gastrointestinal: Gastrointestinal: Reports no additional gastrointestinal complaints Genitourinary: Genitourinary: Reports no additional female genitourinary complaints Exam Narrative: WDWN in NAD skin no rash head ncat lungs clear bilaterally cor reg no rub or gallop abd BS+ nontender and soft ext no edema. Objective Data Vital Signs Vital Signs: Vital Signs - 24 hr 10/05/21 12:00 10/05/21 16:00 10/05/21 16:00 Temperature 36.5 C 36.5 C Pulse Rate 58 L 63 Respiratory Rate 16 20 Blood Pressure 122/70 120/61 Pulse Oximetry 96 93 Oxygen Delivery Room Air 10/05/21 16:54 10/05/21 16:54 10/05/21 12:00 Temperature Pulse Rate 58 L Respiratory Rate Blood Pressure 134/67 114/66 Pulse Oximetry Oxygen Delivery 10/05/21 14:00 10/05/21 16:00 10/05/21 18:00 Temperature Pulse Rate 62 70 66 Respiratory Rate Blood Pressure Pulse Oximetry Oxygen Delivery 10/05/21 20:00 10/06/21 00:00 10/05/21 20:00 Temperature 36.4 C 36.4 C L Pulse Rate 63 67 Respiratory Rate 20 20 Blood Pressure 122/62 136/68 Pulse Oximetry 96 96 Oxygen Delivery Room Air 10/06/21 00:00 10/05/21 20:00 10/05/21 22:00 Temperature Pulse Rate 57 L 51 L Respiratory Rate Blood Pressure Pulse Oximetry Oxygen Delivery Room Air 10/06/21 02:00 10/06/21 00:00 10/06/21 04:00 Temperature 36.3 C L Pulse Rate 62 58 L 55 L Respiratory Rate 18 Blood Pressure 131/98 H Pulse Oximetry 99 Oxygen Delivery 10/06/21 04:00 10/06/21 04:00 10/06/21 06:00 Temperature Pulse Rate 55 L 70 Respiratory Rate Blood Pressure Pulse Oximetry Oxygen Delivery Room Air 10/06/21 07:58 10/06/21 08:00 10/06/21 08:00 Temperature 36.2 C L Pulse Rate 57 L 57 L Respiratory Rate 12 Blood Pressure 157/66 H Pulse Oximetry 97 Oxygen Delivery Room Air Intake/Output Intake/Output: Intake & Output 10/03/21 10/04/21 10/05/21 10/06/21 23:59 23:59 23:59 23:59 Intake Total 275 3050 1890 420 Output Total 450 3200 850 1000 Balance -175 150 1040 580 Meds/Results Medications: Active Medications Generic Name Dose Route Start Last Admin Trade Name Freq PRN Reason Stop Dose Admin Dextrose 12.5 gm 10/03/21 19:29 Dextrose 50% 25 Gm/50 Ml Syringe IV PUSH PRN PRN Hypoglycemia
--- NOTE | 2021-10-06 10:52 | PM.IMPN ---
Progress Note: A&P Assessment and Plan (1) Acute hyponatremia: Code(s): E87.1 - Hypo-osmolality and hyponatremia Status: Acute Assessment and Plan: Patient presents to a physician for plans for radiation iodine ablation but had complaints dizziness and confusion. Routine lab work showed hyponatremia and she was directed to the ED for evaluation and admission. Patient's sodium was 105 here. TSH is elevated the Radiation oncology's wishes to keep the TSH elevated at this time. Renal cortisol was elevated so this will be repeated. CT brain negative. CXR showing probable atelectasis (confirmed by CT of the abdomen). Patient was on lisinopril/HCTZ which contributed to her hyponatremia. Urine sodium was 24 with FENa 0.3%. Nephrology consulted. Patient was given 3% normal saline and was to continue on IV fluids. Na up to 117 today. Nephrology made aware. Nephrology following. (2) Rhabdomyolysis: Code(s): M62.82 - Rhabdomyolysis Status: Acute Assessment and Plan: [place] 66408 on admission. Not on statin therapy. COVID negative. watch CK levels continue iv fluids (3) Elevated LFTs: Code(s): R79.89 - Other specified abnormal findings of blood chemistry Status: Acute Assessment and Plan: AST/ALT elevated on admission. COVID negative. Suspect most likely related to the rhabdomyolysis. (4) Thyroid cancer: Code(s): C73 - Malignant neoplasm of thyroid gland Status: Acute Assessment and Plan: Patient is s/p thyroidectomy on 08/16/21. There is now plans for BABITA by oncology. Further treatment per oncology (5) DM2 (diabetes mellitus, type 2): Code(s): E11.9 - Type 2 diabetes mellitus without complications Status: Acute Assessment and Plan: Continue AccuCheks covering with sliding scale. Hypoglycemia protocol available as needed. Continue to follow. Change to diabetic diet (6) Hypertension: Code(s): I10 - Essential (primary) hypertension Status: Acute Assessment and Plan: BP is 122/70. can restart BP meds later. Will continue to monitor. Hydralazine available prn. (7) Gastritis: Code(s): K29.70 - Gastritis, unspecified, without bleeding Status: Acute Assessment and Plan: CT of the abdomen and pelvis performed due to abdominal pain. Patient noted to have hepatic steatosis with hepatomegaly as well as antral gastritis. Will add Pepcid. Continue to monitor. Additional Plan 10/06/2021 Patient is slightly more alert today. Patient's sodium is 117. Plan is to continue current treatment. Monitor sodium closely. Patient UA was slightly abnormal, will do urine culture and start on p.o. Levaquin. Subjective Date/time seen: 10/06/21 10:52 Patient was seen during the morning rounds today. Patient is slightly more alert. No shortness of breath or chest pain. No abdominal pain, nausea, no vomiting. Mood stable. Review of Systems Review of Systems: All systems reviewed & are unremarkable except as noted in HPI and below ( the history and physical examination.) Exam Narrative: Vital Signs Temp Pulse Resp BP Pulse Ox O2 Del Method O2 Flow Rate 10/05/21 12:00 36.5 C 58 L 16 122/70 96 10/05/21 08:00 36.2 C L 55 L 20 127/69 98 10/05/21 06:00 53 L 10/05/21 04:00 57 L 16 94 Room Air 10/05/21 04:00 56 L
[2021-10-06 11:20] LABS: Anion Gap 9 mmol/L (8-16); Blood Urea Nitrogen 10 mg/dL (7-17); Calcium 7.2 mg/dL (8.4-10.2); Carbon Dioxide 27 mmol/L (22-30); Chloride 81 mmol/L (98-107); Creatine Kinase 1588 U/L (30-135); Estimated CRCL calculation 54 ml/min; Estimated Glomerular Filt Rate > 60; Glucose 172 mg/dL (65-110); Phosphorus 1.9 mg/dL (2.5-4.5); Potassium 3.9 mmol/L (3.4-5.0); Sodium 117 mmol/L (137-145)
[2021-10-06] MEDS: SODIUM CHLORIDE 3% 280 ML 70 ML IV CONT (12:40)
[2021-10-06] MEDS: levoFLOXacin 250 MG TABLET PO (12:41)
[2021-10-06 12:47] LABS: Glucose Point of Care 152 mg/dl (65-105)
[2021-10-06 16:37] LABS: Glucose Point of Care 131 mg/dl (65-105)
[2021-10-06 18:29] LABS: Sodium 122 mmol/L (137-145)
[2021-10-06 20:34] LABS: Glucose Point of Care 215 mg/dl (65-105)
[2021-10-06] MEDS: MELATONIN 3 MG TABLET PO (20:51)
[2021-10-06 21:35] LABS: Sodium 122 mmol/L (137-145)
[2021-10-07] VITALS (14 sets, daily range): BP systolic 117–159; BP diastolic 70–99; PULSE 60–74; RESP 12–20; TEMP 36.2–36.7; O2SAT 95–100
[2021-10-07 05:11] LABS: Alanine Aminotransferase 55 U/L (6-35); Albumin Level 3.7 g/dL (3.5-5.1); Alkaline Phosphatase 76 U/L (38-126); Anion Gap 7 mmol/L (8-16); Aspartate Amino Transferase 94 U/L (14-36); Bilirubin,Total 0.4 mg/dL (0.2-1.3); Blood Urea Nitrogen 9 mg/dL (7-17); Calcium 7.6 mg/dL (8.4-10.2); Carbon Dioxide 25 mmol/L (22-30); Chloride 84 mmol/L (98-107); Creatine Kinase 837 U/L (30-135); Estimated CRCL calculation 61 ml/min; Estimated Glomerular Filt Rate > 60; Glucose 116 mg/dL (65-110); Phosphorus 2.5 mg/dL (2.5-4.5); Potassium 3.6 mmol/L (3.4-5.0); Sodium 116 mmol/L (137-145)
[2021-10-07] MEDS: levoFLOXacin 250 MG TABLET PO (09:19)
[2021-10-07] MEDS: ENOXAPARIN 40 MG/0.4 ML SYRINGE SUB-Q (09:19)
[2021-10-07] MEDS: FAMOTIDINE 20 MG TABLET PO ×2 (09:19→20:14)
[2021-10-07] MEDS: DOCUSATE SODIUM 100 MG CAPSULE PO ×2 (09:21→20:19)
[2021-10-07 10:23] LABS: Sodium 121 mmol/L (137-145)
--- NOTE | 2021-10-07 10:24 | PM.PNNEP ---
Progress Note: A&P Additional Plan 1.? Viviana has hyponatremia.? This is severe. ? Her level was 106 on admission. ? She has hypothyroidism.? Her TSH is high because she is purposefully holding her Synthroid so she can get MEDEROS ? She was also on hydrochlorothiazide.? This has been held. ? She was also drinking plenty of fluid but not eating anything. ? So this is a case where to combination of decreased? free water clearance plus extra water intake. 8? 1p? Na 106 8/4? 7a 114 8/? 1200?? 115.? this is overcorrection so given d5w and ddavp 1700?? 116? more d5w 2130 117? given more d5w 10/05 2a 112? 4a 112 7p 118 MN 121 given desmopressin and d5w. 10/06 5a 117 8a 117 given 3% saline 6p 122 9p 122 / 4a 116 given 3% saline 10a 121 stop ddavp pt overcorrected twice. placed on scheduled ddavp. had 2 rounds of 3% saline now sodium 121. will stop ddavp and check sodium at 4p. if lower then give more 3% saline. 3.? The patient has thyroid carcinoma.? She is going to get MEDEROS. holding off on synthroid. 4.? The patient has hypertension.? Her blood pressure is doing pretty well. 5.? She has? hyperlipidemia.? ? She told me that she was on a statin as an outpatient.? She is not on one now. 6. rhabdo ck 837 today. Subjective Date/time seen: 10/07/21 10:24 Interval history: Patient feels okay. Sitting up in a chair. Eating some breakfast. She is very insightful about her fluid restriction and does not drink any more than the staff are giving her. Exam Narrative: WDWN in NAD skin no rash or subQ nodules head ncat lungs clear bilaterally cor reg no rub or gallop abd BS+ nontender and soft ext no edema or cyanosis Objective Data Vital Signs Vital Signs: Vital Signs - 24 hr 10/06/21 12:00 10/06/21 11:48 10/06/21 12:00 Temperature 37.1 C Pulse Rate 59 L Respiratory Rate 18 Blood Pressure 121/71 Pulse Oximetry 100 100 Oxygen Delivery Room Air Room Air 10/06/21 12:00 10/06/21 16:00 10/06/21 14:00 Temperature 36.6 C Pulse Rate 60 62 62 Respiratory Rate 14 Blood Pressure 130/73 Pulse Oximetry 98 Oxygen Delivery 10/06/21 16:00 10/06/21 16:00 10/06/21 18:00 Temperature Pulse Rate 60 61 Respiratory Rate Blood Pressure Pulse Oximetry Oxygen Delivery Room Air 10/06/21 20:00 10/06/21 23:01 10/06/21 20:00 Temperature 36.3 C L 36.2 C L Pulse Rate 66 63 Respiratory Rate 18 20 Blood Pressure 126/70 113/68 Pulse Oximetry 100 99 Oxygen Delivery Room Air 10/06/21 20:00 10/06/21 22:00 10/07/21 00:00 Temperature Pulse Rate 71 73 Respiratory Rate Blood Pressure Pulse Oximetry Oxygen Delivery Room Air 10/07/21 00:00 10/07/21 02:00 10/07/21 04:00 Temperature 36.4 C Pulse Rate 72 62 64 Respiratory Rate 18 Blood Pressure 121/73 Pulse Oximetry 97 Oxygen Delivery 10/07/21 04:00 10/07/21 04:00 10/07/21 06:00 Temperature Pulse Rate 66 60 Respiratory Rate Blood Pressure Pulse Oximetry Oxygen Delivery Room Air 10/07/21 07:40 10/07/21 08:00 10/07/21 08:00 Temperature 36.2 C L Pulse Rate 62 63 Respiratory Rate 14 Blood Pressure 128/72 Pulse Oximetry 96 Oxygen Delivery Room Air 10/07/21 10:00 Temperature Pulse Rate 68 Respiratory Rate Blood Pressure Pulse Oximetry Oxygen Delivery Intake/Output Intake/Output: Intake & Output 10/04/21 10/05/21 10/06/21 10/07/21 23:59 23:59 23:59 23:59 Intake Total 3050 1890 830.5 200 Output Total 3200 850 1500 975 Balance -150 1040 -669.5 -775 Meds/Results Medications: Active Medications Generic Name Dose Route Start Last Admin Trade Name Freq PRN Reason Stop Dose Admin Dextrose 12.5 gm 10/03/21 19:29 Dextrose 50% 25 Gm/50 Ml Syringe IV PUSH PRN PRN Hypoglycemia Protocol Dicyclomine HCl 10 mg 10/05/21 16:39 10/05/21 17:25 Dicyclomine Hcl 10
--- NOTE | 2021-10-07 10:52 | PM.IMPN ---
Progress Note: A&P Assessment and Plan (1) Acute hyponatremia: Code(s): E87.1 - Hypo-osmolality and hyponatremia Status: Acute Assessment and Plan: Patient presents to a physician for plans for radiation iodine ablation but had complaints dizziness and confusion. Routine lab work showed hyponatremia and she was directed to the ED for evaluation and admission. Patient's sodium was 105 here. TSH is elevated the Radiation oncology's wishes to keep the TSH elevated at this time. Renal cortisol was elevated so this will be repeated. CT brain negative. CXR showing probable atelectasis (confirmed by CT of the abdomen). Patient was on lisinopril/HCTZ which contributed to her hyponatremia. Urine sodium was 24 with FENa 0.3%. Nephrology consulted. Patient was given 3% normal saline and was to continue on IV fluids. Na up to 121 today. Nephrology made aware. Nephrology following. (2) Rhabdomyolysis: Code(s): M62.82 - Rhabdomyolysis Status: Acute Assessment and Plan: [place]CK 77913 on admission. Not on statin therapy. COVID negative. watch CK levels continue iv fluids (3) Elevated LFTs: Code(s): R79.89 - Other specified abnormal findings of blood chemistry Status: Acute Assessment and Plan: AST/ALT elevated on admission. COVID negative. Suspect most likely related to the rhabdomyolysis. (4) Thyroid cancer: Code(s): C73 - Malignant neoplasm of thyroid gland Status: Acute Assessment and Plan: Patient is s/p thyroidectomy on 08/16/21. There is now plans for BABITA by oncology. Further treatment per oncology (5) DM2 (diabetes mellitus, type 2): Code(s): E11.9 - Type 2 diabetes mellitus without complications Status: Acute Assessment and Plan: Continue AccuCheks covering with sliding scale. Hypoglycemia protocol available as needed. Continue to follow. Change to diabetic diet (6) Hypertension: Code(s): I10 - Essential (primary) hypertension Status: Acute Assessment and Plan: BP is 122/70. can restart BP meds later. Will continue to monitor. Hydralazine available prn. (7) Gastritis: Code(s): K29.70 - Gastritis, unspecified, without bleeding Status: Acute Assessment and Plan: CT of the abdomen and pelvis performed due to abdominal pain. Patient noted to have hepatic steatosis with hepatomegaly as well as antral gastritis. Will add Pepcid. Continue to monitor. Additional Plan 10/07/2021 Patient is slightly more alert today. Patient's sodium is 121. Plan is to continue current treatment. Monitor sodium closely. Patient UA was slightly abnormal, will do urine culture and start on p.o. Levaquin. Subjective Date/time seen: 10/07/21 10:52 Patient seen during the morning rounds today. Patient is more alert today. Patient denies any shortness of breath or chest pain. No abdominal pain, no nausea, no vomiting. Mood stable. Review of Systems Review of Systems: All systems reviewed & are unremarkable except as noted in HPI and below ( the history and physical examination.) Exam Narrative: Vital Signs Temp Pulse Resp BP Pulse Ox O2 Del Method O2 Flow Rate 10/05/21 12:00 36.5 C 58 L 16 122/70 96 10/05/21 08:00 36.2 C L 55 L 20 127/69 98 10/05/21 06:00 53 L 10/05/21 04:00 57 L 16 94 Room Air 10/05/21 04:00 56 L
[2021-10-07 12:23] LABS: Glucose Point of Care 134 mg/dl (65-105)
[2021-10-07] MEDS: allopurinoL 100 MG TABLET PO (13:51)
[2021-10-07 16:31] LABS: Sodium 119 mmol/L (137-145)
[2021-10-07 16:43] LABS: Glucose Point of Care 132 mg/dl (65-105)
[2021-10-07] MEDS: BISACODYL 10 MG SUPPOSITORY RECTAL (18:42)
[2021-10-07] MEDS: MELATONIN 3 MG TABLET PO (20:15)
[2021-10-07 20:32] LABS: Glucose Point of Care 129 mg/dl (65-105)
[2021-10-07 21:35] LABS: Sodium 121 mmol/L (137-145)
[2021-10-08] VITALS (17 sets, daily range): BP systolic 125–179; BP diastolic 66–91; PULSE 60–90; RESP 16–20; TEMP 36.3–36.6; O2SAT 95–100
[2021-10-08 05:36] LABS: Alanine Aminotransferase 53 U/L (6-35); Alkaline Phosphatase 88 U/L (38-126); Anion Gap 9 mmol/L (8-16); Aspartate Amino Transferase 78 U/L (14-36); Bilirubin,Total 0.6 mg/dL (0.2-1.3); Blood Urea Nitrogen 9 mg/dL (7-17); Calcium 8.1 mg/dL (8.4-10.2); Carbon Dioxide 24 mmol/L (22-30); Chloride 89 mmol/L (98-107); Estimated CRCL calculation 62 ml/min; Estimated Glomerular Filt Rate > 60; Glucose 143 mg/dL (65-110); Phosphorus 2.9 mg/dL (2.5-4.5); Potassium 3.3 mmol/L (3.4-5.0); Sodium 122 mmol/L (137-145)
[2021-10-08 07:27] LABS: Osmolality, Urine 566 mOsm/kg (50-1200)
[2021-10-08 09:09] LABS: Glucose Point of Care 141 mg/dl (65-105)
--- NOTE | 2021-10-08 09:21 | PM.IMPN ---
Progress Note: A&P Assessment and Plan (1) Acute hyponatremia: Code(s): E87.1 - Hypo-osmolality and hyponatremia Status: Acute Assessment and Plan: Patient with plans for radiation iodine ablation but had complaints of dizziness and confusion. Routine lab work showed hyponatremia and she was directed to the ED. Patient's sodium was 105 here. TSH is elevated but the Radiation oncology's wishes is to keep the TSH elevated at this time. CT brain negative. CXR showing probable atelectasis (confirmed by CT of the abdomen). Patient was on lisinopril/HCTZ which contributed to her hyponatremia. Urine sodium was 24 with FENa 0.3%. Nephrology consulted. Patient being treated with 3% normal saline. Na has been up and down but overall improved to 122 today. May not get to normal given the underlying thyroid disease. Continue fluid restriction. Nephrology following and appreciate their input. Add NaCl tabs. (2) Rhabdomyolysis: Code(s): M62.82 - Rhabdomyolysis Status: Acute Assessment and Plan: [place]CK 50773 on admission. Not on statin therapy. COVID negative. TCK better at 837. Resolving (3) Elevated LFTs: Code(s): R79.89 - Other specified abnormal findings of blood chemistry Status: Acute Assessment and Plan: AST/ALT elevated on admission. COVID negative. Hepatitis panel negative. Suspect most likely related to the rhabdomyolysis. LFTs trending down. (4) Thyroid cancer: Code(s): C73 - Malignant neoplasm of thyroid gland Status: Acute Assessment and Plan: Patient is s/p thyroidectomy on 08/16/21 with plans for BABITA by oncology. Further treatment per oncology. Allowing for hypothyroidism. (5) DM2 (diabetes mellitus, type 2): Code(s): E11.9 - Type 2 diabetes mellitus without complications Status: Acute Assessment and Plan: The patient's blood glucose was reviewed on 10/08 Glucose remains well controlled. Continue AccuCheks covering with sliding scale. Hypoglycemia protocol available as needed. Continue to follow. Continue diabetic diet. Metformin on hold. (6) Hypertension: Code(s): I10 - Essential (primary) hypertension Status: Acute Assessment and Plan: Patient's blood pressure was reviewed on 10/08 Blood pressure remains reasonably well controlled. Will continue to monitor. Hydralazine available prn. (7) Gastritis: Code(s): K29.70 - Gastritis, unspecified, without bleeding Status: Acute Assessment and Plan: CT of the abdomen and pelvis performed due to abdominal pain. Patient noted to have hepatic steatosis with hepatomegaly as well as antral gastritis. Continue Pepcid. Continue to monitor. (8) Hypoxia: Code(s): R09.02 - Hypoxemia Status: Acute Assessment and Plan: Patient appears to be mildly hypoxic at night. Will check ApneaLink on room air. (9) NSVT (nonsustained ventricular tachycardia): Code(s): I47.2 - Ventricular tachycardia Status: Acute Assessment and Plan: Few episodes of nonsustained V-tach noted. Probably electrolyte related. Sodium 122 and potassium is 3.3. Will replace potassium. Check magnesium level (10) UTI (urinary tract infection): Code(s): N39.0 - Urinary tract infection, site not specified Status: Acute Assessment and Plan: UA on admission showing 3+ protein and 2+ blood but o/w negative. Repeat UA now shiowng 3+ LE, +N and 31-50 WBC with UCx growing draper-sensitive EColi. Levaquin started. QTc normal. Given NSVT, will change abx to cefdinir to complete a course. Remove Harper? Plan DVT prophylaxis: Lovenox Code status: DNR Diet: Diabetic with fluid restriction Subjective Date/time seen: 10/08/21 09:21 Interval history: 66yo female with hx of thyroid cancer who was sent to the ED for hyponatremia and had symptoms of confusion and dizziness. Resuming care. Chart reviewed. Her
[2021-10-08 10:14] LABS: Magnesium 1.8 mg/dL (1.6-2.3)
[2021-10-08] MEDS: allopurinoL 100 MG TABLET PO (10:53)
[2021-10-08] MEDS: ENOXAPARIN 40 MG/0.4 ML SYRINGE SUB-Q (10:54)
[2021-10-08] MEDS: DOCUSATE SODIUM 100 MG CAPSULE PO (10:54)
[2021-10-08] MEDS: FAMOTIDINE 20 MG TABLET PO ×2 (10:54→20:27)
[2021-10-08] MEDS: CEFDINIR 300 MG CAPSULE PO ×2 (10:55→20:26)
[2021-10-08] MEDS: SODIUM CHLORIDE 500 MG TABLET PO ×2 (10:55→17:03)
[2021-10-08] MEDS: POTASSIUM CHLORIDE 20 MEQ TABLET PO (11:05)
[2021-10-08 12:48] LABS: Glucose Point of Care 142 mg/dl (65-105)
[2021-10-08 14:14] LABS: Sodium 126 mmol/L (137-145)
--- NOTE | 2021-10-08 15:54 | PM.PNNEP ---
Progress Note: A&P Assessment and Plan (1) Hyponatremia: Code(s): E87.1 - Hypo-osmolality and hyponatremia Status: Acute Assessment and Plan: quite severe on presentation -- 105mmol/L suspect multifactorial etiology: hypothyroidism - her TSH is high because she is purposefully holding her synthroid so she can get MEDEROS given her thyroid cancer was on hydrochlorothiazide - on hold currently excess water intake - she was drinking plenty of fluid but not eating anything... this all culminated in a combination of decreased free water clearance plus extra water intake correction has been difficult (as noted by Dr. Green's last note) she has overcorrected twice already requiring DDAVP and D5W IVFs more recently given 2 rounds of 3% saline follow trend of sodium for now sodium was 122 this AM -- goal is to present sodium from rising to 131 or higher in the next 24 hours may need another run of D5W IVFs conitnue low dose salt tabs and fluid restriction difficult to say if sodium will normalize given underlying thyroid issues... follow trend of repeat sodium levels (2) Rhabdomyolysis: Code(s): M62.82 - Rhabdomyolysis Status: Acute Assessment and Plan: resolving CPK 15,900 on admission repeat CPK levels improving (3) Thyroid cancer: Code(s): C73 - Malignant neoplasm of thyroid gland Status: Acute Assessment and Plan: S/P thyroidectomy on 08/16/21 plans for BABITA by oncology allowing for hypothyroidism at this time (4) Hypertension: Code(s): I10 - Essential (primary) hypertension Status: Acute Assessment and Plan: reasonable control follow trend of hemodynamics (5) UTI (urinary tract infection): Code(s): N39.0 - Urinary tract infection, site not specified Status: Acute Assessment and Plan: urine culture with EColi on antibiotics d/c mota later today Will continue to follow. Subjective Date/time seen: 10/08/21 15:54 Chart reviewed - assuming care from Dr. Green; sodium appears to be more stable at this time (issues with overcorrection requiring DDAVP and D5W IVFs noted); has been ambutating although presence of mota catheter can make it difficult at times; no acute distress voiced at the time of my visit. Exam Narrative: General: WD/WN female in NAD Heart: normal S1 and S2; no rub Lungs: clear to auscultation Abdomen: soft, nontender, nondistended, positive bowel sounds Extremities: no cyanosis or clubbing; no edema Skin: warm and dry Objective Data Vital Signs Vital Signs: Vital Signs Temp Pulse Resp BP Pulse Ox O2 Del Method O2 Flow Rate 10/08/21 14:00 73 10/08/21 12:00 Room Air 10/08/21 12:00 36.3 C L 73 16 153/89 H 96 10/08/21 12:00 76 10/08/21 10:00 77 10/08/21 08:00 68 10/08/21 08:00 Room Air 10/08/21 08:00 36.5 C 65 16 179/88 H 99 10/08/21 08:41 65 96 Room Air 10/08/21 06:00 69 10/08/21 04:50 71 16 95 Room Air 10/08/21 04:00 63 18 100 Room Air 10/08/21 04:11 63 10/08/21 04:00 36.6 C 61 18 128/72 100 10/08/21 02:00 71 10/08/21 00:00 60 20 100 Nasal Cannula 1 10/08/21 00:00 62 10/07/21 23:13 36.2 C L 60 20 127/89 100 10/07/21 22:00 60 10/07/21 20:00 36.3 C L 74 18 133/99 H 95 10/07/21 20:00 71 16 96 Room Air 10/07/21 20:00 70 10/07/21 18:00 71 Intake/Output Intake/Output: Intake & Output 10/05/21 10/06/21 10/07/21 10/08/21 23:59 23:59 23:59 23:59 Intake Total 1890 830.5 320 700 Output Total 850 1500 1325 2100 Balance 9164 -318.4 -0598 -1817 Meds/Results Medications: Active Medications Generic Name Dose Route Start Last Admin Trade Name Freq PRN Reason Stop Dose Admin Allopurinol 100 mg 10/07/21 08:00 10/08/21 10:53 Allopurinol 100 Mg Tablet PO 100
--- NOTE | 2021-10-08 15:54 | P.PNNP_ITS ---
Progress Note: A&P Assessment and Plan (1) Hyponatremia: Code(s): E87.1 - Hypo-osmolality and hyponatremia Status: Acute Assessment and Plan: * quite severe on presentation -- 105mmol/L * suspect multifactorial etiology: * hypothyroidism - her TSH is high because she is purposefully holding her synthroid so she can get MEDEROS given her thyroid cancer * was on hydrochlorothiazide - on hold currently * excess water intake - she was drinking plenty of fluid but not eating anything... * this all culminated in a combination of decreased free water clearance plus extra water intake * correction has been difficult (as noted by Dr. Green's last note) * she has overcorrected twice already requiring DDAVP and D5W IVFs * more recently given 2 rounds of 3% saline * follow trend of sodium for now * sodium was 122 this AM -- goal is to present sodium from rising to 131 or higher in the next 24 hours * may need another run of D5W IVFs * conitnue low dose salt tabs and fluid restriction * difficult to say if sodium will normalize given underlying thyroid issues... * follow trend of repeat sodium levels (2) Rhabdomyolysis: Code(s): M62.82 - Rhabdomyolysis Status: Acute Assessment and Plan: * resolving * CPK 15,900 on admission * repeat CPK levels improving (3) Thyroid cancer: Code(s): C73 - Malignant neoplasm of thyroid gland Status: Acute Assessment and Plan: * S/P thyroidectomy on 08/16/21 * plans for BABITA by oncology * allowing for hypothyroidism at this time (4) Hypertension: Code(s): I10 - Essential (primary) hypertension Status: Acute Assessment and Plan: * reasonable control * follow trend of hemodynamics (5) UTI (urinary tract infection): Code(s): N39.0 - Urinary tract infection, site not specified Status: Acute Assessment and Plan: * urine culture with EColi * on antibiotics * d/c mota later today Will continue to follow. Subjective Date/time seen: 10/08/21 15:54 Chart reviewed - assuming care from Dr. Green; sodium appears to be more stable at this time (issues with overcorrection requiring DDAVP and D5W IVFs noted); has been ambutating although presence of mota catheter can make it difficult at times; no acute distress voiced at the time of my visit. Exam Narrative: General: WD/WN female in NAD Heart: normal S1 and S2; no rub Lungs: clear to auscultation Abdomen: soft, nontender, nondistended, positive bowel sounds Extremities: no cyanosis or clubbing; no edema Skin: warm and dry Objective Data Vital Signs Vital Signs: Vital Signs Temp Pulse Resp BP Pulse Ox O2 Del Method O2 Flow Rate 10/08/21 14:00 73 10/08/21 12:00 Room Air 10/08/21 12:00 36.3 C L 73 16 153/89 H 96 10/08/21 12:00 76 10/08/21 10:00 77 10/08/21 08:00 68 10/08/21 08:00 Room Air 10/08/21 08:00 36.5 C 65 16 179/88 H 99 10/08/21 08:41 65 96 Room Air 10/08/21 06:00 69 10/08/21 04:50 71 16 95 Room Air 10/08/21 04:00 63 18 100 Room Air 10/08/21 04:11 63 10/08/21 04:00 36.6 C 61 18 128/72 100 10/08/21 02:00 71 10/08/21 00:00 60 20 100 Nasal Cannula 1
[2021-10-08 17:11] LABS: Albumin 4.3 g/dL (3.8-4.8); Alpha 1 Globulin 0.3 g/dL (0.2-0.3); Alpha 2 Globulin 0.8 g/dL (0.5-0.9); Beta 1 Globulin 0.5 g/dL (0.4-0.6); Protein, Total 7.3 g/dL (6.1-8.1)
[2021-10-08 17:32] LABS: Glucose Point of Care 137 mg/dl (65-105)
[2021-10-08 20:02] LABS: Sodium 130 mmol/L (137-145)
[2021-10-08] MEDS: MELATONIN 3 MG TABLET PO (20:27)
[2021-10-09] VITALS (11 sets, daily range): BP systolic 151–170; BP diastolic 75–86; PULSE 64–74; RESP 20; TEMP 36.1–36.4; O2SAT 98–99
[2021-10-09 01:22] LABS: Sodium 131 mmol/L (137-145)
[2021-10-09] MEDS: DEXTROSE 5% 1,000 ML 1,000 ML 200 ML IV CONT (02:28)
[2021-10-09 04:43] LABS: Basophils Absolute Auto 0.1 K/mm3 (0.0-0.1); Eosinophils Absolute Auto 0.3 K/mm3 (0-0.3); Hematocrit 34.4 % (37.0-47.0); Hemoglobin 11.5 g/dL (12.0-15.0); Immature Granulocyte Absolute 0.05 K/mm3 (0.00-0.031); Immature Granulocyte Percent A 0.6 % (0-0.5); Lymphocytes Percent Auto 16.8 % (18.3-44.2); Mean Corpuscular HGB Conc 33.4 g/dl (32-36); Mean Corpuscular Hemoglobin 29.3 pg (26-34); Mean Corpuscular Volume 87.5 fl (80-100); Mean Platelet Volume 11.4 fl (7.4-10.4); Monocytes Absolute Auto 0.5 K/mm3 (0.1-0.6); Monocytes Percent Auto 5.4 % (2.6-8.5); Neutrophils Percent Auto 72.2 % (45.5-73.1); Platelet Count Result 285 k/mm3 (150-375); Red Blood Count 3.93 M/mm3 (4.2-5.4); White Blood Count 8.3 K/mm3 (4.5-10.0)
[2021-10-09 04:55] LABS: Albumin Level 4.1 g/dL (3.5-5.1); Anion Gap 10 mmol/L (8-16); Blood Urea Nitrogen 7 mg/dL (7-17); Calcium 8.2 mg/dL (8.4-10.2); Carbon Dioxide 26 mmol/L (22-30); Chloride 93 mmol/L (98-107); Estimated CRCL calculation 55 ml/min; Estimated Glomerular Filt Rate > 60; Glucose 194 mg/dL (65-110); Magnesium 1.9 mg/dL (1.6-2.3); Phosphorus 3.1 mg/dL (2.5-4.5); Potassium 3.1 mmol/L (3.4-5.0); Sodium 129 mmol/L (137-145)
[2021-10-09 08:01] LABS: Glucose Point of Care 169 mg/dl (65-105)
[2021-10-09] MEDS: SODIUM CHLORIDE 500 MG TABLET PO (09:34)
[2021-10-09] MEDS: CEFDINIR 300 MG CAPSULE PO (09:34)
[2021-10-09] MEDS: ENOXAPARIN 40 MG/0.4 ML SYRINGE SUB-Q (09:35)
[2021-10-09] MEDS: allopurinoL 100 MG TABLET PO (09:35)
[2021-10-09] MEDS: FAMOTIDINE 20 MG TABLET PO (09:35)
[2021-10-09] MEDS: POTASSIUM CHLORIDE 20 MEQ TABLET 40 MEQ PO (09:42)
--- NOTE | 2021-10-09 10:06 | P.PNNP_ITS ---
Progress Note: A&P Assessment and Plan (1) Hyponatremia: Code(s): E87.1 - Hypo-osmolality and hyponatremia Status: Acute Assessment and Plan: * quite severe on presentation -- 105mmol/L * suspect multifactorial etiology: * hypothyroidism - her TSH is high because she is purposefully holding her synthroid so she can get MEDEROS given her thyroid cancer * was on hydrochlorothiazide - on hold currently * excess water intake - she was drinking plenty of fluid but not eating anything... * this all culminated in a combination of decreased free water clearance plus extra water intake * correction has been difficult (as noted by Dr. Green's last note) * she has overcorrected twice already requiring DDAVP and D5W IVFs * more recently given 2 rounds of 3% saline * given D5W IVFs earlier this AM due to concerns of overcorrection * sodium 129 this AM (able to achieve stable rate of correction in the last 24 hours) * continue low dose salt tabs and fluid restriction * difficult to say if sodium will normalize given underlying thyroid issues... * follow trend of repeat sodium levels (2) Rhabdomyolysis: Code(s): M62.82 - Rhabdomyolysis Status: Acute Assessment and Plan: * resolving * CPK 15,900 on admission * repeat CPK levels improving (3) Thyroid cancer: Code(s): C73 - Malignant neoplasm of thyroid gland Status: Acute Assessment and Plan: * S/P thyroidectomy on 08/16/21 * plans for BABITA by oncology * allowing for hypothyroidism at this time (4) Hypertension: Code(s): I10 - Essential (primary) hypertension Status: Acute Assessment and Plan: * reasonable control * follow trend of hemodynamics (5) UTI (urinary tract infection): Code(s): N39.0 - Urinary tract infection, site not specified Status: Acute Assessment and Plan: * urine culture with EColi * on antibiotics * d/c mota later today Will continue to follow. Subjective Date/time seen: 10/09/21 10:06 Overall, seems to be doing reasonably well; sodium remains stable if not improving with current interventions; no apparent distress voice at this time; no issues/events overnight or earlier this morning. Exam Narrative: General: WD/WN female in NAD Heart: normal S1 and S2; no rub Lungs: clear to auscultation Abdomen: soft, nontender, nondistended, positive bowel sounds Extremities: no cyanosis or clubbing; no edema Skin: warm and dry Objective Data Vital Signs Vital Signs: Vital Signs Temp Pulse Resp BP Pulse Ox O2 Del Method 10/09/21 08:00 73 10/09/21 08:16 36.3 C L 66 20 170/81 H 98 10/09/21 04:00 71 10/09/21 04:00 Room Air 10/09/21 06:00 67 10/09/21 04:00 Room Air 10/09/21 02:00 74 10/09/21 03:02 36.4 C 73 20 152/86 H 99 10/09/21 00:00 Room Air 10/09/21 00:00 64 10/08/21 23:15 74 98 Room Air 10/08/21 23:43 36.3 C L 72 18 125/84 100 10/08/21 22:00 72 10/08/21 20:00 90 10/08/21 20:00 Room Air 10/08/21 20:00 36.3 C L 79 20 154/91 H 100 10/08/21 18:00 72 10/08/21 16:00 71 10/08/21 16:00 Room Air 10/08/21 16:00 36.6 C 70 16 137/66 96
--- NOTE | 2021-10-09 10:06 | PM.PNNEP ---
Progress Note: A&P Assessment and Plan (1) Hyponatremia: Code(s): E87.1 - Hypo-osmolality and hyponatremia Status: Acute Assessment and Plan: quite severe on presentation -- 105mmol/L suspect multifactorial etiology: hypothyroidism - her TSH is high because she is purposefully holding her synthroid so she can get MEDEROS given her thyroid cancer was on hydrochlorothiazide - on hold currently excess water intake - she was drinking plenty of fluid but not eating anything... this all culminated in a combination of decreased free water clearance plus extra water intake correction has been difficult (as noted by Dr. Green's last note) she has overcorrected twice already requiring DDAVP and D5W IVFs more recently given 2 rounds of 3% saline given D5W IVFs earlier this AM due to concerns of overcorrection sodium 129 this AM (able to achieve stable rate of correction in the last 24 hours) continue low dose salt tabs and fluid restriction difficult to say if sodium will normalize given underlying thyroid issues... follow trend of repeat sodium levels (2) Rhabdomyolysis: Code(s): M62.82 - Rhabdomyolysis Status: Acute Assessment and Plan: resolving CPK 15,900 on admission repeat CPK levels improving (3) Thyroid cancer: Code(s): C73 - Malignant neoplasm of thyroid gland Status: Acute Assessment and Plan: S/P thyroidectomy on 08/16/21 plans for BABITA by oncology allowing for hypothyroidism at this time (4) Hypertension: Code(s): I10 - Essential (primary) hypertension Status: Acute Assessment and Plan: reasonable control follow trend of hemodynamics (5) UTI (urinary tract infection): Code(s): N39.0 - Urinary tract infection, site not specified Status: Acute Assessment and Plan: urine culture with EColi on antibiotics d/c mota later today Will continue to follow. Subjective Date/time seen: 10/09/21 10:06 Overall, seems to be doing reasonably well; sodium remains stable if not improving with current interventions; no apparent distress voice at this time; no issues/events overnight or earlier this morning. Exam Narrative: General: WD/WN female in NAD Heart: normal S1 and S2; no rub Lungs: clear to auscultation Abdomen: soft, nontender, nondistended, positive bowel sounds Extremities: no cyanosis or clubbing; no edema Skin: warm and dry Objective Data Vital Signs Vital Signs: Vital Signs Temp Pulse Resp BP Pulse Ox O2 Del Method 10/09/21 08:00 73 10/09/21 08:16 36.3 C L 66 20 170/81 H 98 10/09/21 04:00 71 10/09/21 04:00 Room Air 10/09/21 06:00 67 10/09/21 04:00 Room Air 10/09/21 02:00 74 10/09/21 03:02 36.4 C 73 20 152/86 H 99 10/09/21 00:00 Room Air 10/09/21 00:00 64 10/08/21 23:15 74 98 Room Air 10/08/21 23:43 36.3 C L 72 18 125/84 100 10/08/21 22:00 72 10/08/21 20:00 90 10/08/21 20:00 Room Air 10/08/21 20:00 36.3 C L 79 20 154/91 H 100 10/08/21 18:00 72 10/08/21 16:00 71 10/08/21 16:00 Room Air 10/08/21 16:00 36.6 C 70 16 137/66 96 10/08/21 14:00 73 10/08/21 12:00 Room Air 10/08/21 12:00 36.3 C L 73 16 153/89 H 96 10/08/21 12:00 76 Intake/Output Intake/Output: Intake & Output 10/06/21 10/07/21 10/08/21 10/09/21 23:59 23:59 23:59 23:59 Intake Total 830.5 320 820 Output Total 1500 1325 2100 1600 [facility] -669.5 -1005 -1280 -1600 Meds/Results Medications: Active Medications Generic Name Dose Route Start Last Admin Trade Name Freq PRN Reason Stop Dose Admin Allopurinol 100 mg 10/07/21 08:00 10/09/21 09:35 Allopurinol 100 Mg Tablet PO 100 mg DAILY@0800 [facility] Administration Cefdinir 300 mg 10/08/21 10:00 10/09/21 09:34 Cefdinir 300 Mg Capsule PO 300 mg Q12HR [facility] Admin
[2021-10-09 12:15] LABS: Glucose Point of Care 122 mg/dl (65-105)
[2021-10-09 12:27] LABS: Sodium 131 mmol/L (137-145)
--- NOTE | 2021-10-09 14:34 | PM.DS ---
DS: Admitting Diagnosis Discharge Date 10/09/21 Admitting Diagnosis Hyponatremia with confusion and dizziness. DS: Discharge Diagnosis Discharge Diagnosis (1) Acute hyponatremia: Code(s): E87.1 - Hypo-osmolality and hyponatremia Status: Acute (2) Rhabdomyolysis: Code(s): M62.82 - Rhabdomyolysis Status: Acute (3) Elevated LFTs: Code(s): R79.89 - Other specified abnormal findings of blood chemistry Status: Acute (4) Thyroid cancer: Code(s): C73 - Malignant neoplasm of thyroid gland Status: Acute (5) DM2 (diabetes mellitus, type 2): Code(s): E11.9 - Type 2 diabetes mellitus without complications Status: Acute (6) Hypertension: Code(s): I10 - Essential (primary) hypertension Status: Acute (7) Gastritis: Code(s): K29.70 - Gastritis, unspecified, without bleeding Status: Acute (8) Hypoxia: Code(s): R09.02 - Hypoxemia Status: Acute (9) NSVT (nonsustained ventricular tachycardia): Code(s): I47.2 - Ventricular tachycardia Status: Acute (10) UTI (urinary tract infection): Code(s): N39.0 - Urinary tract infection, site not specified Status: Acute DS: Summary Hospital Course Reason for hospitalization: 66yo female with hx of thyroid cancer who was sent to the ED for hyponatremia and had symptoms of confusion and dizziness. Please see H&P for details Hospital Course: Patient with plans for radiation iodine ablation but had complaints of dizziness and confusion. Routine lab work showed hyponatremia and she was directed to the ED.? Patient's sodium was 105 here.?TSH is elevated but the Radiation oncology's wishes is to keep the TSH elevated at this time. CT brain negative. CXR showing probable atelectasis (confirmed by CT of the abdomen). Patient was on lisinopril/HCTZ which contributed to her hyponatremia.? Urine sodium was 24 with FENa 0.3%. Nephrology was consulted. Patient was treated with 3% normal saline. Sodium level has been up and down but overall improved to 131 today. Na was corrected in a slow fashion. May not get to a normal sodium given the underlying thyroid disease. TCK 61940 on admission. Not on statin therapy. COVID was negative. TCK improved to 837. AST/ALT elevated on admission. Hepatitis panel negative. Suspect most likely related to the rhabdomyolysis. LFTs trending down. Patient is s/p thyroidectomy on 08/16/21 with plans for BABITA by oncology.?CT of the abdomen and pelvis performed due to abdominal pain.? Patient noted to have hepatic steatosis with hepatomegaly as well as antral gastritis treated with Pepcid.? Patient was noted to be mildly hypoxic at night and ApneaLink ordered but evaluation was not accurate. UCx growing draper-sensitive EColi. Patient overall did well and was able to be discharged home on 10/09/21. Status at Discharge Cognitive/behavioral status at discharge: Stable Time Spent with Patient Time attestation: Total time spent providing and/or coordinating discharge services: 35 minutes Time spent: Greater than 30 minutes Exam Narrative: AF 96.9 151/75 72 20 99% RA Gen - NARD Chest - CTA bilaterally, nml RR CV - RRR S1/S2. Tele showing PVCs Abd - Soft, NT/ND, Positive BS Ext - No pedal edema Psych - Nml mood and affect Skin - Warm and dry DS: Data Data Completed and Pending Labs on day of discharge: Labs from last 24 hours 10/09/21 10/09/21 10/09/21 12:11 12:04 07:56 WBC RBC Hgb Hct MCV MCH MCHC RDW Plt Count MPV Immature Gran % (Auto) Neut % (Auto) Lymph % (Auto) Armstrong % (Auto) Eos % (Auto) Baso % (Auto) Lymph # (Auto) Armstrong # (Auto) Eos # (Auto) Baso # (Auto) Abs Immat Gran (auto) Absolute Neuts (auto) Absolute Nucleated RBC Nucleated RBC % Sodium 131 L Potassium Chloride Carbon Dioxide Anion Gap BUN Creatinine Estim Creat Cl
== END 2021-10-09 15:49 | disposition home health service (06) | DRG 641 ==
LOC: ANHED 16:19 → ANHIMU 18:07
PROVIDERS: Family Medicine; Internal Medicine; Internal Medicine Nephrology; Student in an Organized Health Care Education/Training Program; Admitting Provider Internal Medicine; Emergency Provider Emergency Medicine; PCP Physician Assistant; Visit Provider Internal Medicine
DX: E87.1 Hypo-osmolality and hyponatremia (principal); M62.82 Rhabdomyolysis; I47.2 Ventricular tachycardia; N39.0 Urinary tract infection, site not specified; J98.11 Atelectasis; B96.20 Unspecified Escherichia coli [E. coli] as the cause of diseases classified elsewhere; C73 Malignant neoplasm of thyroid gland; E86.0 Dehydration; Z20.822 Contact with and (suspected) exposure to COVID-19; E11.9 Type 2 diabetes mellitus without complications; I10 Essential (primary) hypertension; K29.70 Gastritis, unspecified, without bleeding; R09.02 Hypoxemia; F17.290 Nicotine dependence, other tobacco product, uncomplicated; E83.42 Hypomagnesemia; Z90.49 Acquired absence of other specified parts of digestive tract; Z66 Do not resuscitate
CPT/HCPCS: 36415; 51701; 70450; 71045; 74177; 80048; 80053; 80069; 80074; 81001; 82533; 82550; 82570; 82948; 83605; 83690; 83735; 83930; 83935; 84100; 84155; 84156; 84165; 84295; 84300; 84439; 84443; 85025; 85055; 87040; 87077; 87086; 87186; 93005; 94762; 96361; 96365; 96366; 96368; 96372; 97110; 97116; 97161; 97165; 97530; 97535; 99285; A9270; C9803; G0378; J1650; J2597; J3475; J3480; J7030; J7040; J7060; J7070; J7131; Q9967; U0003; U0005

== ENCOUNTER → 2022-11-13 10:17 | Outpatient (CLI) | payer MEDICARE, SELFPAY ==
--- NOTE | ~2022-11-13 | DEXA_ITS ---
Bone Density Report Name: ALEJANDRO BUTTS Age: 67 Sex: Female Ethnicity: White Date of : 1955 Indication: postmenopausal; screening for osteoporosis; height loss; cancer; Referring Provider: QUEENIE, MELYSSA Study: Bone densitometry was performed. Exam Date: November 13, 2022 Accession number: [id number] Bone Density: Region BMD T-score Z-score Classification AP Spine (L1-L4) 0.978 -0.6 1.3 Normal Femoral Neck (Left) 0.573 -2.5 -0.8 Osteoporosis Total Hip (Left) 0.696 -2.0 -0.6 Osteopenia Femoral Neck (Right) 0.592 -2.3 -0.6 Osteopenia Total Hip (Right) 0.746 -1.6 -0.2 Osteopenia Total Hip Mean 0.721 -1.8 -0.4 Osteopenia World Health Organization criteria for BMD impression classify patients as: Normal (T-score at or above -1.0), Osteopenia (T-score between -1.0 and -2.5), or Osteoporosis (T-score at or below -2.5). 10-year Fracture Risk: FRAX not reported because: Some T-score for Spine Total or Hip Total or Femoral Neck at or below -2.5 Clinical Information Provided by Patient: Has the following medical conditions: Cancer, thyroid removed(cancer) Patient maximum height was 64 Menopause Age: 55 Does not regularly consume dairy products Drinks caffeinated beverages Onset of menses at age 16 Number of children 3 Impression: The patient has osteoporosis, based on the Left Femoral Neck T-score. Discussion: INCREASED RISK OF FRACTURE. BONE DENSITY IS UNDESIRABLY LOW AT ONE OR MORE SKELETAL SITES, CONSISTENT WITH POSTMENOPAUSAL OSTEOPOROSIS. This patient's lowest T-score meets the World Health Organization's (WHO) criteria for osteoporosis at one or more sites (T-score -2.5 or below). In untreated patients, the risk of osteoporotic fracture increases approximately two-fold for each 1.0 SD decrease in T-score. Low bone density is not the only risk factor for fracture; also consider factors such as patient's age, frailty or poor health, risk of falling, risk of injury, previous osteoporotic fracture, family history of osteoporosis, cigarette smoking, low body weight, etc. Not everyone with low bone mineral density has osteoporosis; osteomalacia and other metabolic bone disorders should also be considered. Patients who have osteoporosis should be evaluated for specific diseases and conditions (secondary causes) that may cause or contribute to bone loss. The [place] [employer]ocrin[employer] (AACE) and National Osteoporosis Foundation (NOF) recommend pharmacologic intervention for all postmenopausal women whose T-score is in this range. The patient should follow a healthful lifestyle (good nutrition with adequate calcium and vitamin D, and appropriate weight-bearing exercise). Follow-Up: Consider a repeat BMD and Vertebral Fracture Assessment (VFA) exam in 2 years or sooner if medically
== END ==
PROVIDERS: PCP Physician Assistant; Visit Provider Physician Assistant
DX: Z78.0 Asymptomatic menopausal state (principal); M81.0 Age-related osteoporosis without current pathological fracture; M85.852 Other specified disorders of bone density and structure, left thigh; M85.851 Other specified disorders of bone density and structure, right thigh
CPT/HCPCS: 77080

== ENCOUNTER 2023-04-30 12:45 | Outpatient (RCR) | payer MEDICARE, SELFPAY ==
[2023-04-23 15:25] VITALS: BP_SYST 100
--- NOTE | 2023-04-23 16:39 | OPREHPOC ---
Outpatient Therapy Plan of Care This is a Multidisciplinary Plan of Care that may contain components documented by all disciplines (PT, OT, and ST.) PT Problem 1 PT Problem #1 Knowledge Deficit PT Goal 1 Goal 1* indep with HEP PT Problem 2 PT Problem #2 Pain PT Goal 1 Goal 1* pain rating of 2/10 at worst 2* self assessment Quick DASH rating of 28% limitation in activity PT Problem 3 PT Problem #3 Impaired Flexibility PT Goal 1 Goal increase ROM of neck and R shoulder, to improve ability to drive and do self care active ROM in sittin* cervical rotation to R 50' 2* cervical rotation to L 60' 4* R shoulder flexion 135' 5* R shoulder IR- reach palm to back of head PT Problem 4 PT Problem #4 Impaired Strength PT Goal 1 Goal increase strength of R shoulder, to increase self care and home task performance: standing 5 reps: 1* shoulder flexion to 130' 2* shoulder abduction to 90'
--- NOTE | 2023-04-23 16:39 | PTOPEVAL1 ---
Assessment and note entered by Faye Abraham, PT Evaluation Information Assessment Status Evaluation Diagnosis R shoulder dysfunction, s/p thyroid cancer surgery Subjective Information have had 3 surgeries for thyroid cancer- Mar 31, 2023, August 01, 2022 and August 15, 2021, have some nerve damage and lack of sensation over neck and R shoulder; R hand dominant; neck is stiff and problems turning head to R/L; problems driving and look behind her. have not had any therapy; has appointment May 01- with radiation dr to start radiation treatments, that will be daily, not sure what her schedule will start with it; Activity: live alone; is able to do in home tasks, self care; retired; Reported Pain Level Pain Score Self Report Additional Pain Score Comments pain range in the past week: 1-3/10; aches, posterior shoulder, under arm, lateral R neck; tight muscles; increase pain; lie on R side, decrease pain: ibuprofen 2x/day, change positions, support to arm use heating pad careful due to decreased sensation Assessment PT Clinical Summary Viviana has the diagnosis of R shoulder dysfunction, s/p thyroid surgery for cancer, total 3x. Quick DASH self assessment 39% limitation in activity level. She lives alone and is doing all her self care and in home activities. She is to meet with the radiation dr and begin radiation treatments, but not sure of when. She has decreased sensation over shoulder. Problems with driving, turning head and pain. With the evaluation: she has fibrosis and tightness over R lateral cervical area of scarring decreased ROM of R shoulder- all motions and cervical rotation and side bend to R and L. Her posture is rounded shoulders and forward head. Skilled PT services are indicated for modalities to decrease pain and spasms over R upper quadrant and neck, therapeutic exercises to increase cervical and R shoulder ROM and strength with education for HEP and posture correction. Plan of Care Interventions [facility]
--- NOTE | 2023-05-22 13:10 | PCPTNOTE ---
called pt to check on her. she is to start radiation treatment next week. Discussed with her the option for compression with reduction kit with [facility] for head/neck and her chart will be kept open for a few more weeks, then will have to d/c. And require a new order if PT is to continue.
--- NOTE | 2023-06-20 09:18 | PTOPDC ---
Assessment and note entered by Faye Abraham, PT Discharge Information Assessment Status Discharge - Pt Not Present Diagnosis R shoulder dysfunction, s/p thyroid cancer surgery Assessment PT Clinical Summary Viviana has received 3 PT sessions, from Apr 23 to . She then stopped attending therapy due to radiation treatments starting. Discharge PT. The goals were not addressed. Plan of Care PT Services Indicated No
== END 2023-06-20 09:44 | disposition home or self-care (01) ==
LOC: ANHPT 12:45
PROVIDERS: PCP Physician Assistant
DX: Z48.89 Encounter for other specified surgical aftercare (principal); M25.9 Joint disorder, unspecified
CPT/HCPCS: 97110; 97140; 97162; 97530